=== PATIENT | male | born 1995 | race Caucasian/White ===

== ENCOUNTER 2017-03-21 23:12 | Inpatient (IN) | payer OTHER ==
[2017-03-21] MEDS: morphine 4 MG/ML VIAL IV (23:52)
[2017-03-21] MEDS: SOD CHLORIDE 0.9% 1,000 ML IV (23:52)
[2017-03-21] MEDS: ONDANSETRON 4 MG INJ IV (23:53)
[2017-03-21 23:59] LABS: ADD MAN DIFF? NO
[2017-03-22 00:01] LABS: WHITE BLOOD COUNT 12.7 10^3/ul (4.8-10.8)
[2017-03-22 00:01] LABS: BASOPHIL # 0.1 10^3/ul (0.0-0.1); BASOPHILS % 0.6 % (0.0-2.0); EOSINOPHILS # 0.2 10^3/ul (0.0-0.5); EOSINOPHILS % 1.3 % (0.0-7.0); HEMATOCRIT 44.7 % (42.0-52.0); HEMOGLOBIN 14.7 g/dl (14.0-18.0); LYMPHOCYTES # 3.5 10^3/ul (0.8-2.9); LYMPHOCYTES % 27.4 % (18.0-55.0); MEAN CORPUSCULAR HEMOGLOBIN 29.2 pg (29.0-33.0); MEAN CORPUSCULAR HGB CONC 32.9 g/dl (32.0-37.0); MEAN CORPUSCULAR VOLUME 88.9 fl (72.0-104.0); MEAN PLATELET VOLUME 10.3 fl (7.4-10.4); MONOCYTE # 0.6 10^3/ul (0.3-0.9); NEUTROPHIL # 8.3 10^3/ul (1.6-7.5); NEUTROPHILS % 65.3 % (30.0-74.0); PLATELET COUNT 598 10^3/UL (140-415); RED BLOOD COUNT 5.03 10^6/ul (4.70-6.10); RED CELL DISTRIBUTION WIDTH 12.8 % (11.5-14.5)
[2017-03-22] MEDS ORDERED: morphine 4 MG/ML VIAL IV (00:42)
[2017-03-22 00:48] LABS: ALANINE AMINOTRANSFERASE 93 IU/L (13-69); ALBUMIN 4.3 g/dl (3.3-4.9); ALBUMIN/GLOBULIN RATIO 0.81; ALKALINE PHOSPHATASE 136 IU/L (42-121); ANION GAP 20 (8-16); ASPARTATE AMINO TRANSFERASE 60 IU/L (15-46); BILIRUBIN,INDIRECT 0.5 mg/dl (0-1.1); BILIRUBIN,TOTAL 0.5 mg/dl (0.2-1.3); BLOOD UREA NITROGEN 14 mg/dl (7-20); CALCIUM 10.1 mg/dl (8.4-10.2); CARBON DIOXIDE 23 mmol/L (21-31); CHLORIDE 102 mmol/L (97-110); CREATININE 0.94 mg/dl (0.61-1.24); GLUCOSE 134 mg/dl (70-220); LIPASE 867 U/L (23-300); SODIUM 141 mmol/L (135-144); TOTAL PROTEIN 9.6 g/dl (6.1-8.1)
[2017-03-22] MEDS: HYDROmorphONE 1 MG/ML SYG IV ×4 (00:51→21:50)
[2017-03-22] MEDS: MEROPENEM 500MG/50 ML (PMX) 50 ML IVPB ×3 (02:19→21:45)
[2017-03-22] MEDS ORDERED: NACL 0.9% 3 ML SYG IV (04:00)
[2017-03-22] MEDS ORDERED: ALBUTEROL/IPRATROPIUM (NEB) 3 ML AMP HHN (04:00)
[2017-03-22] MEDS ORDERED: morphine 2 MG INJ IV (04:00)
[2017-03-22] MEDS ORDERED: ACETAMINOPHEN 650 MG SUPP PR (04:00)
[2017-03-22] MEDS: DEXTROSE 5%-0.45% NACL 1,000 ML IV ×3 (04:18→21:19)
[2017-03-22] MEDS: FAMOTIDINE 20 MG INJ IV ×2 (12:39→21:19)
[2017-03-22] MEDS ORDERED: VANCOMYCIN IV PER PHARMACY XX (15:30)
[2017-03-22] MEDS: morphine 4 MG/ML VIAL IV ×2 (16:01→18:26)
[2017-03-22 17:38] LABS: LACTIC ACID 1.5 mmol/L (0.5-2.0)
[2017-03-22] MEDS: VANCOMYCIN 1.5 GM in DEXTROSE 5% 500 ML IVPB (19:42)
[2017-03-22] MEDS: MEROPENEM 1 GM/50ML(PMX) 50 ML IVPB (21:11)
[2017-03-22] MEDS: VANCOMYCIN 1.5 GM in SOD CHLORIDE 0.9% 250 ML IVPB (22:39)
[2017-03-23] MEDS ORDERED: VANCOMYCIN 1 GM 250 ML IVPB
[2017-03-23] MEDS: morphine 4 MG/ML VIAL IV ×4 (01:32→20:27)
[2017-03-23] MEDS: DEXTROSE 5%-0.45% NACL 1,000 ML IV ×3 (03:15→18:49)
[2017-03-23] MEDS: MEROPENEM 1 GM/50ML(PMX) 50 ML IVPB ×3 (05:31→20:25)
[2017-03-23 07:41] LABS: ADD MAN DIFF? NO
[2017-03-23 08:02] LABS: BASOPHILS % 0.3 % (0.0-2.0); EOSINOPHILS # 0.1 10^3/ul (0.0-0.5); HEMATOCRIT 36.1 % (42.0-52.0); LYMPHOCYTES % 22.7 % (18.0-55.0); MEAN CORPUSCULAR HGB CONC 33.2 g/dl (32.0-37.0); MEAN CORPUSCULAR VOLUME 90.3 fl (72.0-104.0); MEAN PLATELET VOLUME 10.8 fl (7.4-10.4); MONOCYTE # 0.7 10^3/ul (0.3-0.9); MONOCYTES % 8.3 % (0.0-13.0); NEUTROPHILS % 67.5 % (30.0-74.0); PLATELET COUNT 362 10^3/UL (140-415); RED CELL DISTRIBUTION WIDTH 13.2 % (11.5-14.5)
[2017-03-23 08:02] LABS: WHITE BLOOD COUNT 8.9 10^3/ul (4.8-10.8)
[2017-03-23 08:15] LABS: ALANINE AMINOTRANSFERASE 65 IU/L (13-69); ALBUMIN 2.9 g/dl (3.3-4.9); ALBUMIN/GLOBULIN RATIO 0.72; ALKALINE PHOSPHATASE 83 IU/L (42-121); ANION GAP 14 (8-16); ASPARTATE AMINO TRANSFERASE 33 IU/L (15-46); BILIRUBIN,INDIRECT 0.7 mg/dl (0-1.1); BILIRUBIN,TOTAL 0.7 mg/dl (0.2-1.3); BLOOD UREA NITROGEN 8 mg/dl (7-20); CALCIUM 9.1 mg/dl (8.4-10.2); CARBON DIOXIDE 28 mmol/L (21-31); CHLORIDE 102 mmol/L (97-110); CREATININE 0.75 mg/dl (0.61-1.24); GLUCOSE 89 mg/dl (70-220); MAGNESIUM 1.8 mg/dl (1.7-2.5); POTASSIUM 3.4 mmol/L (3.5-5.1); SODIUM 141 mmol/L (135-144); TOTAL PROTEIN 6.9 g/dl (6.1-8.1)
[2017-03-23] MEDS: FAMOTIDINE 20 MG INJ IV ×2 (09:12→20:25)
[2017-03-23] MEDS: VANCOMYCIN 1 GM 250 ML IVPB ×3 (09:12→21:43)
[2017-03-23] MEDS: POTASSIUM CHLORIDE 30 MEQ in SOD CHLORIDE 0.9% 150 ML IVPB (11:52)
[2017-03-23 21:20] LABS: VANCOMYCIN,TROUGH 18.4 ug/ml (10.0-20.0)
[2017-03-23] MEDS: ONDANSETRON 4 MG INJ IV (21:57)
[2017-03-23] MEDS: HYDROmorphONE 1 MG/ML SYG IV (22:44)
[2017-03-24] MEDS: DEXTROSE 5%-0.45% NACL 1,000 ML IV ×3 (02:18→14:22)
[2017-03-24] MEDS: MEROPENEM 1 GM/50ML(PMX) 50 ML IVPB ×3 (04:59→21:13)
[2017-03-24] MEDS: morphine 4 MG/ML VIAL IV ×3 (04:59→18:13)
[2017-03-24] MEDS: VANCOMYCIN 1 GM 250 ML IVPB (05:57)
[2017-03-24 07:54] LABS: ADD MAN DIFF? NO
[2017-03-24 08:00] LABS: BASOPHILS % 0.3 % (0.0-2.0); EOSINOPHILS # 0.2 10^3/ul (0.0-0.5); HEMATOCRIT 35.5 % (42.0-52.0); LYMPHOCYTES # 1.7 10^3/ul (0.8-2.9); LYMPHOCYTES % 22.3 % (18.0-55.0); MEAN CORPUSCULAR HEMOGLOBIN 29.6 pg (29.0-33.0); MEAN CORPUSCULAR HGB CONC 33.8 g/dl (32.0-37.0); MEAN CORPUSCULAR VOLUME 87.4 fl (72.0-104.0); MEAN PLATELET VOLUME 11.1 fl (7.4-10.4); MONOCYTE # 0.8 10^3/ul (0.3-0.9); MONOCYTES % 10.9 % (0.0-13.0); NEUTROPHIL # 4.8 10^3/ul (1.6-7.5); NEUTROPHILS % 63.2 % (30.0-74.0); PLATELET COUNT 343 10^3/UL (140-415); RED BLOOD COUNT 4.06 10^6/ul (4.70-6.10); RED CELL DISTRIBUTION WIDTH 12.7 % (11.5-14.5)
[2017-03-24 08:00] LABS: WHITE BLOOD COUNT 7.6 10^3/ul (4.8-10.8)
[2017-03-24 08:30] LABS: LIPASE 658 U/L (23-300)
[2017-03-24 08:32] LABS: ALANINE AMINOTRANSFERASE 54 IU/L (13-69); ALBUMIN/GLOBULIN RATIO 0.76; ALKALINE PHOSPHATASE 84 IU/L (42-121); ANION GAP 14 (8-16); ASPARTATE AMINO TRANSFERASE 30 IU/L (15-46); BILIRUBIN,INDIRECT 0.6 mg/dl (0-1.1); BILIRUBIN,TOTAL 0.6 mg/dl (0.2-1.3); BLOOD UREA NITROGEN 5 mg/dl (7-20); CARBON DIOXIDE 28 mmol/L (21-31); CHLORIDE 101 mmol/L (97-110); CREATININE 0.69 mg/dl (0.61-1.24); GLUCOSE 114 mg/dl (70-220); POTASSIUM 3.5 mmol/L (3.5-5.1); SODIUM 139 mmol/L (135-144); TOTAL PROTEIN 6.9 g/dl (6.1-8.1)
[2017-03-24 08:40] LABS: LACTIC ACID 0.9 mmol/L (0.5-2.0)
[2017-03-24] MEDS: FAMOTIDINE 20 MG INJ IV ×2 (08:56→20:37)
[2017-03-24 09:47] LABS: MAGNESIUM 1.9 mg/dl (1.7-2.5)
[2017-03-24] MEDS: VANCOMYCIN 750 MG in DEXTROSE 5% 150 ML IVPB ×2 (14:19→22:02)
[2017-03-24] MEDS: ONDANSETRON 4 MG INJ IV (21:15)
[2017-03-24] MEDS: HYDROmorphONE 1 MG/ML SYG IV (22:02)
[2017-03-25] MEDS: METOCLOPRAMIDE 10 MG INJ IV (00:12)
[2017-03-25] MEDS ORDERED: METOCLOPRAMIDE 10 MG INJ (00:14)
[2017-03-25] MEDS: DEXTROSE 5%-0.45% NACL 1,000 ML IV ×4 (03:34→21:02)
[2017-03-25] MEDS: morphine 4 MG/ML VIAL IV ×4 (04:51→22:04)
[2017-03-25] MEDS: MEROPENEM 1 GM/50ML(PMX) 50 ML IVPB ×3 (05:05→21:03)
[2017-03-25] MEDS: VANCOMYCIN 750 MG in DEXTROSE 5% 150 ML IVPB ×3 (05:25→21:30)
[2017-03-25 06:10] LABS: ADD MAN DIFF? NO
[2017-03-25 06:15] LABS: BASOPHILS % 0.4 % (0.0-2.0); EOSINOPHILS # 0.3 10^3/ul (0.0-0.5); EOSINOPHILS % 3.1 % (0.0-7.0); HEMATOCRIT 35.4 % (42.0-52.0); LYMPHOCYTES # 1.8 10^3/ul (0.8-2.9); LYMPHOCYTES % 21.2 % (18.0-55.0); MEAN CORPUSCULAR HEMOGLOBIN 29.9 pg (29.0-33.0); MEAN CORPUSCULAR HGB CONC 33.9 g/dl (32.0-37.0); MEAN CORPUSCULAR VOLUME 88.1 fl (72.0-104.0); MEAN PLATELET VOLUME 10.9 fl (7.4-10.4); MONOCYTE # 0.9 10^3/ul (0.3-0.9); MONOCYTES % 10.7 % (0.0-13.0); NEUTROPHIL # 5.4 10^3/ul (1.6-7.5); NEUTROPHILS % 64.2 % (30.0-74.0); PLATELET COUNT 313 10^3/UL (140-415); RED BLOOD COUNT 4.02 10^6/ul (4.70-6.10); RED CELL DISTRIBUTION WIDTH 12.5 % (11.5-14.5)
[2017-03-25 06:15] LABS: WHITE BLOOD COUNT 8.4 10^3/ul (4.8-10.8)
[2017-03-25 07:08] LABS: ANION GAP 14 (8-16); BLOOD UREA NITROGEN 4 mg/dl (7-20); CALCIUM 9.6 mg/dl (8.4-10.2); CARBON DIOXIDE 30 mmol/L (21-31); CHLORIDE 99 mmol/L (97-110); CREATININE 0.73 mg/dl (0.61-1.24); GLUCOSE 97 mg/dl (70-220); MAGNESIUM 1.9 mg/dl (1.7-2.5); PHOSPHORUS 4.6 mg/dl (2.5-4.9); POTASSIUM 3.9 mmol/L (3.5-5.1); SODIUM 139 mmol/L (135-144)
[2017-03-25] MEDS: FAMOTIDINE 20 MG INJ IV ×2 (08:31→21:02)
[2017-03-25] MEDS: SOD CHLORIDE 0.9% 500 ML IV (17:21)
[2017-03-25] MEDS: HYDROmorphONE 1 MG/ML SYG IV ×2 (17:48→22:44)
[2017-03-25 21:44] LABS: VANCOMYCIN,TROUGH 11.9 ug/ml (10.0-20.0)
[2017-03-25] MEDS: ONDANSETRON 4 MG INJ IV (22:50)
[2017-03-26] MEDS: morphine 4 MG/ML VIAL IV (03:32)
[2017-03-26] MEDS: DEXTROSE 5%-0.45% NACL 1,000 ML IV ×3 (03:34→19:34)
[2017-03-26] MEDS: MEROPENEM 1 GM/50ML(PMX) 50 ML IVPB ×3 (05:25→21:10)
[2017-03-26] MEDS: HYDROmorphONE 1 MG/ML SYG IV ×5 (05:32→21:11)
[2017-03-26] MEDS: VANCOMYCIN 750 MG in DEXTROSE 5% 150 ML IVPB ×3 (06:04→21:55)
[2017-03-26 08:29] LABS: ADD MAN DIFF? NO
[2017-03-26 08:52] LABS: BASOPHILS % 0.5 % (0.0-2.0); EOSINOPHILS # 0.3 10^3/ul (0.0-0.5); EOSINOPHILS % 3.5 % (0.0-7.0); HEMATOCRIT 36.7 % (42.0-52.0); HEMOGLOBIN 12.2 g/dl (14.0-18.0); LYMPHOCYTES # 1.9 10^3/ul (0.8-2.9); LYMPHOCYTES % 23.4 % (18.0-55.0); MEAN CORPUSCULAR HEMOGLOBIN 29.4 pg (29.0-33.0); MEAN CORPUSCULAR HGB CONC 33.2 g/dl (32.0-37.0); MEAN CORPUSCULAR VOLUME 88.4 fl (72.0-104.0); MEAN PLATELET VOLUME 11.1 fl (7.4-10.4); MONOCYTE # 1.1 10^3/ul (0.3-0.9); MONOCYTES % 13.8 % (0.0-13.0); NEUTROPHIL # 4.7 10^3/ul (1.6-7.5); NEUTROPHILS % 58.5 % (30.0-74.0); PLATELET COUNT 326 10^3/UL (140-415); RED BLOOD COUNT 4.15 10^6/ul (4.70-6.10); RED CELL DISTRIBUTION WIDTH 12.4 % (11.5-14.5)
[2017-03-26 08:57] LABS: INR 1.14; PROTIME 14.8 Sec (11.9-14.9); PT RATIO 1.2
[2017-03-26] MEDS: FAMOTIDINE 20 MG INJ IV ×2 (09:01→21:11)
[2017-03-26] MEDS: ENOXAPARIN 40 MG/0.4 ML SYG SC (09:22)
[2017-03-26 09:52] LABS: ALANINE AMINOTRANSFERASE 52 IU/L (13-69); ALBUMIN 3.5 g/dl (3.3-4.9); ALBUMIN/GLOBULIN RATIO 0.85; ALKALINE PHOSPHATASE 103 IU/L (42-121); ANION GAP 15 (8-16); ASPARTATE AMINO TRANSFERASE 48 IU/L (15-46); BILIRUBIN,INDIRECT 0.8 mg/dl (0-1.1); BILIRUBIN,TOTAL 0.8 mg/dl (0.2-1.3); BLOOD UREA NITROGEN 3 mg/dl (7-20); CALCIUM 9.6 mg/dl (8.4-10.2); CARBON DIOXIDE 29 mmol/L (21-31); CHLORIDE 100 mmol/L (97-110); CREATININE 0.64 mg/dl (0.61-1.24); GLUCOSE 96 mg/dl (70-220); MAGNESIUM 1.9 mg/dl (1.7-2.5); PHOSPHORUS 4.3 mg/dl (2.5-4.9); POTASSIUM 3.8 mmol/L (3.5-5.1); SODIUM 140 mmol/L (135-144); TOTAL PROTEIN 7.6 g/dl (6.1-8.1)
[2017-03-26 11:44] LABS: LACTATE DEHYDROGENASE 449 IU/L (313-618)
[2017-03-26 11:52] LABS: CHOL/HDL RATIO 6.5 RATIO; HDL CHOLESTEROL 17 mg/dl (30-63); LDL CHOLESTEROL,CALCULATED 73 mg/dl; TRIGLYCERIDES 105 mg/dl (0-149)
[2017-03-26 11:52] LABS: CHOLESTEROL 111 mg/dl (85-190)
[2017-03-26] MEDS: ONDANSETRON 4 MG INJ IV ×2 (14:44→22:27)
[2017-03-26] MEDS ORDERED: LIDOCAINE 1% (MPF) 5 ML VIAL SC (15:30)
[2017-03-26 20:07] LABS: HEMOGLOBIN A1C 5.5 % (0-5.9)
[2017-03-27] MEDS: HYDROmorphONE 1 MG/ML SYG IV ×7 (00:19→22:52)
[2017-03-27] MEDS: DEXTROSE 5%-0.45% NACL 1,000 ML IV ×3 (00:19→19:34)
[2017-03-27] MEDS: MEROPENEM 1 GM/50ML(PMX) 50 ML IVPB ×3 (05:08→21:10)
[2017-03-27] MEDS: VANCOMYCIN 750 MG in DEXTROSE 5% 150 ML IVPB ×3 (05:43→22:52)
[2017-03-27 06:40] LABS: ADD MAN DIFF? NO
[2017-03-27 06:42] LABS: WHITE BLOOD COUNT 7.4 10^3/ul (4.8-10.8)
[2017-03-27 06:42] LABS: BASOPHILS % 0.4 % (0.0-2.0); EOSINOPHILS # 0.2 10^3/ul (0.0-0.5); EOSINOPHILS % 3.2 % (0.0-7.0); HEMATOCRIT 35.2 % (42.0-52.0); HEMOGLOBIN 12.1 g/dl (14.0-18.0); LYMPHOCYTES # 1.5 10^3/ul (0.8-2.9); LYMPHOCYTES % 19.8 % (18.0-55.0); MEAN CORPUSCULAR HGB CONC 34.4 g/dl (32.0-37.0); MEAN CORPUSCULAR VOLUME 87.1 fl (72.0-104.0); MEAN PLATELET VOLUME 10.9 fl (7.4-10.4); MONOCYTE # 1.1 10^3/ul (0.3-0.9); MONOCYTES % 14.6 % (0.0-13.0); NEUTROPHIL # 4.6 10^3/ul (1.6-7.5); NEUTROPHILS % 61.7 % (30.0-74.0); PLATELET COUNT 288 10^3/UL (140-415); RED BLOOD COUNT 4.04 10^6/ul (4.70-6.10); RED CELL DISTRIBUTION WIDTH 12.6 % (11.5-14.5)
[2017-03-27 07:05] LABS: LIPASE 467 U/L (23-300)
[2017-03-27 07:11] LABS: ALANINE AMINOTRANSFERASE 63 IU/L (13-69); ALBUMIN 3.5 g/dl (3.3-4.9); ALBUMIN/GLOBULIN RATIO 0.85; ALKALINE PHOSPHATASE 105 IU/L (42-121); ANION GAP 15 (8-16); ASPARTATE AMINO TRANSFERASE 39 IU/L (15-46); BILIRUBIN,INDIRECT 0.8 mg/dl (0-1.1); BILIRUBIN,TOTAL 0.8 mg/dl (0.2-1.3); BLOOD UREA NITROGEN 4 mg/dl (7-20); CALCIUM 9.7 mg/dl (8.4-10.2); CARBON DIOXIDE 29 mmol/L (21-31); CHLORIDE 99 mmol/L (97-110); CREATININE 0.62 mg/dl (0.61-1.24); GLUCOSE 101 mg/dl (70-220); MAGNESIUM 1.8 mg/dl (1.7-2.5); PHOSPHORUS 4.2 mg/dl (2.5-4.9); POTASSIUM 3.8 mmol/L (3.5-5.1); SODIUM 139 mmol/L (135-144); TOTAL PROTEIN 7.6 g/dl (6.1-8.1)
[2017-03-27 08:10] LABS: INR 1.21; PROTIME 15.5 Sec (11.9-14.9); PT RATIO 1.2
[2017-03-27] MEDS ORDERED: morphine LIQ (20 MG/ML PO SYG) SL (09:00)
[2017-03-27] MEDS: BARIUM SULF 2% 450 ML BTL (BERRY SMOOTHIE) PO (09:07)
[2017-03-27] MEDS: FAMOTIDINE 20 MG INJ IV ×2 (09:07→20:46)
[2017-03-27] MEDS: ENOXAPARIN 40 MG/0.4 ML SYG SC (09:08)
[2017-03-27] MEDS: IOHEXOL 300MG/ML 150 ML BTL (11:08)
[2017-03-27] MEDS: SOD CHLORIDE 0.9% 100 ML (11:08)
[2017-03-27] MEDS: ONDANSETRON 4 MG INJ IV (20:43)
[2017-03-28] MEDS: HYDROmorphONE 1 MG/ML SYG IV ×7 (01:48→22:41)
[2017-03-28] MEDS: DEXTROSE 5%-0.45% NACL 1,000 ML IV ×3 (01:48→12:41)
[2017-03-28] MEDS: MEROPENEM 1 GM/50ML(PMX) 50 ML IVPB ×2 (05:00→13:53)
[2017-03-28 05:51] LABS: ADD MAN DIFF? NO
[2017-03-28 05:53] LABS: BASOPHILS % 0.6 % (0.0-2.0); EOSINOPHILS # 0.2 10^3/ul (0.0-0.5); EOSINOPHILS % 2.7 % (0.0-7.0); HEMATOCRIT 38.2 % (42.0-52.0); HEMOGLOBIN 12.7 g/dl (14.0-18.0); LYMPHOCYTES # 1.6 10^3/ul (0.8-2.9); LYMPHOCYTES % 23.5 % (18.0-55.0); MEAN CORPUSCULAR HEMOGLOBIN 29.1 pg (29.0-33.0); MEAN CORPUSCULAR HGB CONC 33.2 g/dl (32.0-37.0); MEAN CORPUSCULAR VOLUME 87.4 fl (72.0-104.0); MEAN PLATELET VOLUME 11.2 fl (7.4-10.4); MONOCYTE # 1.1 10^3/ul (0.3-0.9); MONOCYTES % 15.6 % (0.0-13.0); NEUTROPHIL # 3.8 10^3/ul (1.6-7.5); NEUTROPHILS % 57.2 % (30.0-74.0); PLATELET COUNT 246 10^3/UL (140-415); RED BLOOD COUNT 4.37 10^6/ul (4.70-6.10); RED CELL DISTRIBUTION WIDTH 12.3 % (11.5-14.5)
[2017-03-28 05:53] LABS: WHITE BLOOD COUNT 6.7 10^3/ul (4.8-10.8)
[2017-03-28] MEDS: VANCOMYCIN 750 MG in DEXTROSE 5% 150 ML IVPB ×2 (06:07→15:38)
[2017-03-28 06:16] LABS: LIPASE 406 U/L (23-300)
[2017-03-28 06:28] LABS: ANION GAP 14 (8-16); BLOOD UREA NITROGEN 3 mg/dl (7-20); CALCIUM 9.3 mg/dl (8.4-10.2); CARBON DIOXIDE 28 mmol/L (21-31); CHLORIDE 99 mmol/L (97-110); GLUCOSE 108 mg/dl (70-220); POTASSIUM 3.6 mmol/L (3.5-5.1); SODIUM 137 mmol/L (135-144)
[2017-03-28] MEDS: FAMOTIDINE 20 MG INJ IV ×2 (08:23→20:58)
[2017-03-28] MEDS: ENOXAPARIN 40 MG/0.4 ML SYG SC (08:24)
[2017-03-28] MEDS: ONDANSETRON 4 MG INJ IV ×2 (13:54→19:57)
[2017-03-28] MEDS ORDERED: morphine LIQ (10 MG/5 ML) CUP PO (19:00)
[2017-03-28] MEDS: HYDROmorphONE 0.5 MG/0.5 ML SYG IV (20:37)
[2017-03-28 22:16] LABS: VANCOMYCIN,TROUGH 11.7 ug/ml (10.0-20.0)
[2017-03-29] MEDS: DEXTROSE 5%-0.45% NACL 1,000 ML IV ×5 (00:16→21:12)
[2017-03-29] MEDS: HYDROmorphONE 0.5 MG/0.5 ML SYG IV ×3 (01:18→23:38)
[2017-03-29] MEDS: HYDROmorphONE 1 MG/ML SYG IV ×4 (04:57→20:04)
[2017-03-29 06:21] LABS: ADD MAN DIFF? NO
[2017-03-29 06:37] LABS: BASOPHILS % 0.3 % (0.0-2.0); EOSINOPHILS # 0.1 10^3/ul (0.0-0.5); EOSINOPHILS % 1.1 % (0.0-7.0); HEMATOCRIT 37.1 % (42.0-52.0); HEMOGLOBIN 12.7 g/dl (14.0-18.0); LYMPHOCYTES # 1.5 10^3/ul (0.8-2.9); LYMPHOCYTES % 18.8 % (18.0-55.0); MEAN CORPUSCULAR HGB CONC 34.2 g/dl (32.0-37.0); MEAN CORPUSCULAR VOLUME 87.5 fl (72.0-104.0); MEAN PLATELET VOLUME 11.7 fl (7.4-10.4); MONOCYTE # 1.1 10^3/ul (0.3-0.9); MONOCYTES % 13.1 % (0.0-13.0); NEUTROPHIL # 5.3 10^3/ul (1.6-7.5); NEUTROPHILS % 66.6 % (30.0-74.0); PLATELET COUNT 268 10^3/UL (140-415); RED BLOOD COUNT 4.24 10^6/ul (4.70-6.10); RED CELL DISTRIBUTION WIDTH 12.5 % (11.5-14.5)
[2017-03-29 07:01] LABS: ANION GAP 15 (8-16); BLOOD UREA NITROGEN 4 mg/dl (7-20); CALCIUM 9.1 mg/dl (8.4-10.2); CARBON DIOXIDE 29 mmol/L (21-31); CHLORIDE 98 mmol/L (97-110); CREATININE 0.62 mg/dl (0.61-1.24); GLUCOSE 126 mg/dl (70-220); POTASSIUM 3.8 mmol/L (3.5-5.1); SODIUM 138 mmol/L (135-144)
[2017-03-29 07:15] LABS: LIPASE 750 U/L (23-300)
[2017-03-29 08:28] LABS: AMYLASE 695 U/L (11-123)
[2017-03-29] MEDS: FAMOTIDINE 20 MG INJ IV ×2 (09:30→20:04)
[2017-03-29] MEDS: ENOXAPARIN 40 MG/0.4 ML SYG SC (09:34)
[2017-03-29] MEDS ORDERED: ONDANSETRON 4 MG INJ IV (10:30)
[2017-03-29] MEDS ORDERED: TRIMETHOBENZAMIDE 100 MG/ML VIAL IM (11:00)
[2017-03-29] MEDS: ONDANSETRON INJ 8 MG in SOD CHLORIDE 0.9% 50 ML IV (11:35)
[2017-03-29] MEDS: HYDROCODONE/APAP (5/325) TAB PO ×3 (12:28→21:09)
[2017-03-29] MEDS ORDERED: HYDROmorphONE 1 MG/ML SYG IV (15:30)
[2017-03-29] MEDS: METOCLOPRAMIDE 10 MG INJ IV (23:37)
[2017-03-30] MEDS: DEXTROSE 5%-0.45% NACL 1,000 ML IV ×3 (03:10→20:10)
[2017-03-30] MEDS: HYDROmorphONE 1 MG/ML SYG IV ×4 (03:10→22:23)
[2017-03-30 06:19] LABS: ADD MAN DIFF? NO
[2017-03-30] MEDS: HYDROmorphONE 0.5 MG/0.5 ML SYG IV ×3 (06:26→21:13)
[2017-03-30 06:42] LABS: WHITE BLOOD COUNT 9.8 10^3/ul (4.8-10.8)
[2017-03-30 06:42] LABS: BASOPHILS % 0.4 % (0.0-2.0); EOSINOPHILS # 0.1 10^3/ul (0.0-0.5); EOSINOPHILS % 0.7 % (0.0-7.0); HEMATOCRIT 34.3 % (42.0-52.0); HEMOGLOBIN 11.6 g/dl (14.0-18.0); LYMPHOCYTES % 20.9 % (18.0-55.0); MEAN CORPUSCULAR HEMOGLOBIN 29.7 pg (29.0-33.0); MEAN CORPUSCULAR HGB CONC 33.8 g/dl (32.0-37.0); MEAN CORPUSCULAR VOLUME 87.9 fl (72.0-104.0); MEAN PLATELET VOLUME 12.3 fl (7.4-10.4); MONOCYTE # 1.2 10^3/ul (0.3-0.9); NEUTROPHIL # 6.4 10^3/ul (1.6-7.5); NEUTROPHILS % 65.7 % (30.0-74.0); PLATELET COUNT 181 10^3/UL (140-415); RED CELL DISTRIBUTION WIDTH 12.6 % (11.5-14.5)
[2017-03-30 07:07] LABS: ANION GAP 13 (8-16); BLOOD UREA NITROGEN 3 mg/dl (7-20); CALCIUM 8.9 mg/dl (8.4-10.2); CARBON DIOXIDE 27 mmol/L (21-31); CHLORIDE 100 mmol/L (97-110); CREATININE 0.55 mg/dl (0.61-1.24); GLUCOSE 125 mg/dl (70-220); POTASSIUM 3.8 mmol/L (3.5-5.1); SODIUM 136 mmol/L (135-144)
[2017-03-30 07:37] LABS: LIPASE 444 U/L (23-300)
[2017-03-30] MEDS: FAMOTIDINE 20 MG INJ IV ×2 (09:21→20:08)
[2017-03-30] MEDS: METOCLOPRAMIDE 10 MG INJ IV ×2 (09:22→16:06)
[2017-03-30] MEDS: ENOXAPARIN 40 MG/0.4 ML SYG SC (09:37)
[2017-03-30] MEDS: ONDANSETRON INJ 8 MG in SOD CHLORIDE 0.9% 50 ML IV (12:58)
[2017-03-30] MEDS: HYDROmorphONE 2 MG/ML SYG IV (17:39)
[2017-03-31] MEDS: HYDROmorphONE 2 MG/ML SYG IV ×6 (01:58→22:33)
[2017-03-31] MEDS: DEXTROSE 5%-0.45% NACL 1,000 ML IV ×3 (04:16→22:33)
[2017-03-31] MEDS: METOCLOPRAMIDE 10 MG INJ IV (05:27)
[2017-03-31 06:19] LABS: ADD MAN DIFF? NO
[2017-03-31 06:32] LABS: WHITE BLOOD COUNT 11.8 10^3/ul (4.8-10.8)
[2017-03-31 06:32] LABS: ABNORMAL IP MESSAGE 1; BASOPHILS % 0.3 % (0.0-2.0); EOSINOPHILS # 0.1 10^3/ul (0.0-0.5); EOSINOPHILS % 0.5 % (0.0-7.0); HEMATOCRIT 35.1 % (42.0-52.0); HEMOGLOBIN 11.6 g/dl (14.0-18.0); LYMPHOCYTES # 2.5 10^3/ul (0.8-2.9); LYMPHOCYTES % 21.2 % (18.0-55.0); MEAN CORPUSCULAR HEMOGLOBIN 29.3 pg (29.0-33.0); MEAN CORPUSCULAR VOLUME 88.6 fl (72.0-104.0); MONOCYTE # 1.5 10^3/ul (0.3-0.9); MONOCYTES % 12.8 % (0.0-13.0); NEUTROPHIL # 7.6 10^3/ul (1.6-7.5); NEUTROPHILS % 64.9 % (30.0-74.0); PLATELET COUNT 270 10^3/UL (140-415); POSITIVE DIFF @See below; RED BLOOD COUNT 3.96 10^6/ul (4.70-6.10); RED CELL DISTRIBUTION WIDTH 12.7 % (11.5-14.5)
[2017-03-31 07:53] LABS: ALANINE AMINOTRANSFERASE 49 IU/L (13-69); ALBUMIN 3.9 g/dl (3.3-4.9); ALKALINE PHOSPHATASE 110 IU/L (42-121); AMYLASE 329 U/L (11-123); ANION GAP 17 (8-16); ASPARTATE AMINO TRANSFERASE 47 IU/L (15-46); BILIRUBIN,INDIRECT 1.1 mg/dl (0-1.1); BILIRUBIN,TOTAL 1.1 mg/dl (0.2-1.3); BLOOD UREA NITROGEN 2 mg/dl (7-20); CALCIUM 9.3 mg/dl (8.4-10.2); CARBON DIOXIDE 26 mmol/L (21-31); CHLORIDE 99 mmol/L (97-110); CREATININE 0.54 mg/dl (0.61-1.24); GLUCOSE 122 mg/dl (70-220); LIPASE 530 U/L (23-300); POTASSIUM 3.5 mmol/L (3.5-5.1); SODIUM 138 mmol/L (135-144); TOTAL PROTEIN 7.8 g/dl (6.1-8.1)
[2017-03-31] MEDS: FAMOTIDINE 20 MG INJ IV ×2 (09:57→22:33)
[2017-03-31] MEDS: ENOXAPARIN 40 MG/0.4 ML SYG SC (10:03)
[2017-03-31] MEDS: DIPHENHYDRAMINE 50 MG INJ IV ×3 (10:54→22:33)
[2017-03-31] MEDS: ACETAMINOPHEN 1000MG/100ML IV 100 ML IVPB ×3 (12:14→23:56)
[2017-03-31] MEDS: ONDANSETRON INJ 8 MG in SOD CHLORIDE 0.9% 50 ML IV ×2 (12:39→18:57)
[2017-04-01] MEDS: ONDANSETRON INJ 8 MG in SOD CHLORIDE 0.9% 50 ML IV ×4 (00:19→17:43)
[2017-04-01] MEDS: HYDROmorphONE 2 MG/ML SYG IV ×7 (01:46→21:33)
[2017-04-01] MEDS: DEXTROSE 5%-0.45% NACL 1,000 ML IV ×5 (04:34→21:33)
[2017-04-01] MEDS: DIPHENHYDRAMINE 50 MG INJ IV ×4 (04:34→21:33)
[2017-04-01 06:03] LABS: ADD MAN DIFF? NO
[2017-04-01 06:20] LABS: ABNORMAL IP MESSAGE 1; BASOPHILS % 0.2 % (0.0-2.0); EOSINOPHILS # 0.1 10^3/ul (0.0-0.5); EOSINOPHILS % 0.5 % (0.0-7.0); HEMATOCRIT 34.5 % (42.0-52.0); HEMOGLOBIN 11.4 g/dl (14.0-18.0); LYMPHOCYTES # 1.3 10^3/ul (0.8-2.9); LYMPHOCYTES % 11.2 % (18.0-55.0); MEAN CORPUSCULAR HEMOGLOBIN 29.2 pg (29.0-33.0); MEAN CORPUSCULAR VOLUME 88.2 fl (72.0-104.0); MEAN PLATELET VOLUME 12.9 fl (7.4-10.4); MONOCYTE # 1.5 10^3/ul (0.3-0.9); NEUTROPHIL # 8.7 10^3/ul (1.6-7.5); NEUTROPHILS % 74.7 % (30.0-74.0); POSITIVE DIFF @See below; RED BLOOD COUNT 3.91 10^6/ul (4.70-6.10); RED CELL DISTRIBUTION WIDTH 12.7 % (11.5-14.5)
[2017-04-01 06:20] LABS: WHITE BLOOD COUNT 11.7 10^3/ul (4.8-10.8)
[2017-04-01 06:21] LABS: PLATELET COUNT 184 10^3/UL (140-415)
[2017-04-01 06:39] LABS: ANION GAP 14 (8-16); BLOOD UREA NITROGEN 2 mg/dl (7-20); CALCIUM 8.6 mg/dl (8.4-10.2); CARBON DIOXIDE 26 mmol/L (21-31); CHLORIDE 100 mmol/L (97-110); CREATININE 0.49 mg/dl (0.61-1.24); GLUCOSE 118 mg/dl (70-220); SODIUM 136 mmol/L (135-144)
[2017-04-01] MEDS: ACETAMINOPHEN 1000MG/100ML IV 100 ML IVPB ×3 (06:42→18:30)
[2017-04-01] MEDS: FAMOTIDINE 20 MG INJ IV ×2 (08:29→21:33)
[2017-04-01] MEDS: ENOXAPARIN 40 MG/0.4 ML SYG SC (08:38)
[2017-04-02] MEDS: ACETAMINOPHEN 1000MG/100ML IV 100 ML IVPB ×5 (00:45→23:48)
[2017-04-02] MEDS: DEXTROSE 5%-0.45% NACL 1,000 ML IV ×3 (00:45→20:31)
[2017-04-02] MEDS: HYDROmorphONE 2 MG/ML SYG IV ×4 (00:45→10:14)
[2017-04-02] MEDS: ONDANSETRON INJ 8 MG in SOD CHLORIDE 0.9% 50 ML IV ×5 (01:04→23:48)
[2017-04-02] MEDS: DIPHENHYDRAMINE 50 MG INJ IV ×4 (03:56→20:32)
[2017-04-02 06:32] LABS: ADD MAN DIFF? NO
[2017-04-02 06:42] LABS: BASOPHILS % 0.3 % (0.0-2.0); EOSINOPHILS % 0.4 % (0.0-7.0); HEMATOCRIT 32.8 % (42.0-52.0); LYMPHOCYTES # 1.2 10^3/ul (0.8-2.9); LYMPHOCYTES % 10.9 % (18.0-55.0); MEAN CORPUSCULAR HEMOGLOBIN 29.1 pg (29.0-33.0); MEAN CORPUSCULAR HGB CONC 33.5 g/dl (32.0-37.0); MEAN CORPUSCULAR VOLUME 86.8 fl (72.0-104.0); MEAN PLATELET VOLUME 11.6 fl (7.4-10.4); MONOCYTE # 1.4 10^3/ul (0.3-0.9); NEUTROPHIL # 8.6 10^3/ul (1.6-7.5); PLATELET COUNT 236 10^3/UL (140-415); RED BLOOD COUNT 3.78 10^6/ul (4.70-6.10); RED CELL DISTRIBUTION WIDTH 12.6 % (11.5-14.5)
[2017-04-02 06:42] LABS: WHITE BLOOD COUNT 11.3 10^3/ul (4.8-10.8)
[2017-04-02 07:28] LABS: ANION GAP 17 (8-16); BLOOD UREA NITROGEN 3 mg/dl (7-20); CALCIUM 8.7 mg/dl (8.4-10.2); CARBON DIOXIDE 27 mmol/L (21-31); CHLORIDE 98 mmol/L (97-110); CREATININE 0.51 mg/dl (0.61-1.24); GLUCOSE 122 mg/dl (70-220); LIPASE 367 U/L (23-300); POTASSIUM 3.9 mmol/L (3.5-5.1); SODIUM 138 mmol/L (135-144)
[2017-04-02 07:32] LABS: MAGNESIUM 1.7 mg/dl (1.7-2.5)
[2017-04-02] MEDS: FAMOTIDINE 20 MG INJ IV ×2 (09:05→20:31)
[2017-04-02] MEDS: ENOXAPARIN 40 MG/0.4 ML SYG SC (09:14)
[2017-04-02] MEDS: morphine 2 MG INJ IV ×3 (14:08→22:14)
[2017-04-02] MEDS: SENNA TAB PO (20:32)
[2017-04-02] MEDS ORDERED: SENNA TAB PO (21:00)
[2017-04-02] MEDS: LORAZEPAM 2 MG INJ IV (23:48)
[2017-04-03] MEDS: morphine 2 MG INJ IV ×3 (03:39→10:37)
[2017-04-03] MEDS: DEXTROSE 5%-0.45% NACL 1,000 ML IV ×4 (04:00→20:00)
[2017-04-03] MEDS: DIPHENHYDRAMINE 50 MG INJ IV ×2 (05:29→10:37)
[2017-04-03] MEDS: ACETAMINOPHEN 1000MG/100ML IV 100 ML IVPB ×2 (05:30→12:34)
[2017-04-03] MEDS: ONDANSETRON INJ 8 MG in SOD CHLORIDE 0.9% 50 ML IV ×2 (05:31→12:34)
[2017-04-03 07:18] LABS: AMYLASE 216 U/L (11-123)
[2017-04-03 07:18] LABS: LIPASE 342 U/L (23-300)
[2017-04-03] MEDS: FAMOTIDINE 20 MG INJ IV ×2 (08:52→08:53)
[2017-04-03] MEDS: SENNA TAB PO ×2 (08:52→20:56)
[2017-04-03] MEDS: ENOXAPARIN 40 MG/0.4 ML SYG SC (09:03)
[2017-04-03] MEDS: BARIUM SULF 2% 450 ML BTL (BERRY SMOOTHIE) PO (15:30)
[2017-04-03] MEDS: ONDANSETRON 4 MG INJ IV (18:29)
[2017-04-03] MEDS: HYDROCODONE/APAP (5/325) TAB PO (20:22)
[2017-04-03] MEDS: LORAZEPAM 2 MG INJ IV (23:22)
[2017-04-04] MEDS: HYDROCODONE/APAP (5/325) TAB PO ×2 (00:40→04:42)
[2017-04-04] MEDS: DEXTROSE 5%-0.45% NACL 1,000 ML IV ×3 (00:40→17:13)
[2017-04-04] MEDS: ONDANSETRON 4 MG INJ IV ×3 (00:43→20:41)
[2017-04-04] MEDS: LORAZEPAM 2 MG INJ IV ×2 (06:14→22:20)
[2017-04-04 06:21] LABS: LIPASE 377 U/L (23-300)
[2017-04-04 06:21] LABS: AMYLASE 217 U/L (11-123)
[2017-04-04] MEDS: SENNA TAB PO ×2 (08:55→20:41)
[2017-04-04] MEDS: ENOXAPARIN 40 MG/0.4 ML SYG SC (09:03)
[2017-04-04] MEDS: morphine 2 MG INJ IV ×2 (11:58→14:06)
[2017-04-04] MEDS ORDERED: morphine 2 MG INJ IV (12:00)
[2017-04-04] MEDS: morphine 4 MG/ML VIAL IV ×2 (16:46→20:41)
[2017-04-05] MEDS: morphine 4 MG/ML VIAL IV ×7 (00:46→22:58)
[2017-04-05] MEDS: DEXTROSE 5%-0.45% NACL 1,000 ML IV ×3 (01:49→20:00)
[2017-04-05] MEDS: ONDANSETRON 4 MG INJ IV ×3 (04:38→22:55)
[2017-04-05 06:07] LABS: ADD MAN DIFF? NO
[2017-04-05 06:12] LABS: WHITE BLOOD COUNT 7.8 10^3/ul (4.8-10.8)
[2017-04-05 06:12] LABS: BASOPHILS % 0.4 % (0.0-2.0); EOSINOPHILS # 0.1 10^3/ul (0.0-0.5); EOSINOPHILS % 1.4 % (0.0-7.0); HEMATOCRIT 32.2 % (42.0-52.0); HEMOGLOBIN 10.8 g/dl (14.0-18.0); LYMPHOCYTES # 1.7 10^3/ul (0.8-2.9); LYMPHOCYTES % 22.3 % (18.0-55.0); MEAN CORPUSCULAR HEMOGLOBIN 28.9 pg (29.0-33.0); MEAN CORPUSCULAR HGB CONC 33.5 g/dl (32.0-37.0); MEAN CORPUSCULAR VOLUME 86.1 fl (72.0-104.0); MEAN PLATELET VOLUME 10.9 fl (7.4-10.4); MONOCYTES % 12.8 % (0.0-13.0); NEUTROPHIL # 4.9 10^3/ul (1.6-7.5); NEUTROPHILS % 62.7 % (30.0-74.0); PLATELET COUNT 272 10^3/UL (140-415); RED BLOOD COUNT 3.74 10^6/ul (4.70-6.10); RED CELL DISTRIBUTION WIDTH 13.2 % (11.5-14.5)
[2017-04-05 06:37] LABS: MAGNESIUM 1.7 mg/dl (1.7-2.5)
[2017-04-05 06:38] LABS: ANION GAP 16 (8-16); BLOOD UREA NITROGEN 3 mg/dl (7-20); CALCIUM 8.6 mg/dl (8.4-10.2); CARBON DIOXIDE 27 mmol/L (21-31); CHLORIDE 98 mmol/L (97-110); CREATININE 0.52 mg/dl (0.61-1.24); GLUCOSE 117 mg/dl (70-220); LIPASE 340 U/L (23-300); POTASSIUM 3.1 mmol/L (3.5-5.1); SODIUM 138 mmol/L (135-144)
[2017-04-05] MEDS: SENNA TAB PO ×2 (08:32→21:00)
[2017-04-05] MEDS: ENOXAPARIN 40 MG/0.4 ML SYG SC (08:41)
[2017-04-05] MEDS: LORAZEPAM 2 MG INJ IV ×2 (10:28→18:45)
[2017-04-05] MEDS: POTASSIUM CHLORIDE 50 ML IVPB ×5 (11:13→19:09)
[2017-04-06] MEDS: morphine 4 MG/ML VIAL IV ×7 (02:10→22:57)
[2017-04-06] MEDS: DEXTROSE 5%-0.45% NACL 1,000 ML IV ×4 (04:00→22:57)
[2017-04-06] MEDS: ONDANSETRON 4 MG INJ IV ×3 (05:10→17:53)
[2017-04-06 06:03] LABS: ADD MAN DIFF? NO
[2017-04-06 06:12] LABS: WHITE BLOOD COUNT 6.3 10^3/ul (4.8-10.8)
[2017-04-06 06:12] LABS: BASOPHILS % 0.5 % (0.0-2.0); EOSINOPHILS # 0.2 10^3/ul (0.0-0.5); EOSINOPHILS % 2.7 % (0.0-7.0); HEMOGLOBIN 10.2 g/dl (14.0-18.0); LYMPHOCYTES # 2.3 10^3/ul (0.8-2.9); LYMPHOCYTES % 36.1 % (18.0-55.0); MEAN CORPUSCULAR HEMOGLOBIN 29.1 pg (29.0-33.0); MEAN CORPUSCULAR VOLUME 85.5 fl (72.0-104.0); MEAN PLATELET VOLUME 10.5 fl (7.4-10.4); MONOCYTE # 0.8 10^3/ul (0.3-0.9); MONOCYTES % 12.7 % (0.0-13.0); NEUTROPHILS % 47.5 % (30.0-74.0); PLATELET COUNT 272 10^3/UL (140-415); RED BLOOD COUNT 3.51 10^6/ul (4.70-6.10); RED CELL DISTRIBUTION WIDTH 13.2 % (11.5-14.5)
[2017-04-06 06:42] LABS: ANION GAP 15 (8-16); BLOOD UREA NITROGEN 3 mg/dl (7-20); CALCIUM 8.5 mg/dl (8.4-10.2); CARBON DIOXIDE 27 mmol/L (21-31); CHLORIDE 99 mmol/L (97-110); CREATININE 0.51 mg/dl (0.61-1.24); GLUCOSE 112 mg/dl (70-220); LIPASE 291 U/L (23-300); MAGNESIUM 1.8 mg/dl (1.7-2.5); POTASSIUM 3.3 mmol/L (3.5-5.1); SODIUM 138 mmol/L (135-144)
[2017-04-06] MEDS: SENNA TAB PO ×2 (08:16→20:00)
[2017-04-06] MEDS: ENOXAPARIN 40 MG/0.4 ML SYG SC (08:27)
[2017-04-06] MEDS: POTASSIUM CHLORIDE (SR) 20 MEQ TAB PO (17:12)
[2017-04-07] MEDS: LORAZEPAM 2 MG INJ IV (00:13)
[2017-04-07] MEDS: ONDANSETRON 4 MG INJ IV ×3 (00:18→22:18)
[2017-04-07] MEDS: morphine 4 MG/ML VIAL IV ×7 (02:07→21:59)
[2017-04-07] MEDS: DEXTROSE 5%-0.45% NACL 1,000 ML IV ×5 (04:00→20:00)
[2017-04-07] MEDS: SENNA TAB PO ×2 (08:07→20:46)
[2017-04-07 08:10] LABS: ANION GAP 22 (8-16); BLOOD UREA NITROGEN 2 mg/dl (7-20); CALCIUM 9.3 mg/dl (8.4-10.2); CARBON DIOXIDE 20 mmol/L (21-31); CHLORIDE 107 mmol/L (97-110); CREATININE 0.54 mg/dl (0.61-1.24); GLUCOSE 113 mg/dl (70-220); LIPASE 312 U/L (23-300); POTASSIUM 4.5 mmol/L (3.5-5.1); SODIUM 144 mmol/L (135-144)
[2017-04-07] MEDS: ENOXAPARIN 40 MG/0.4 ML SYG SC (08:18)
[2017-04-07 08:34] LABS: MAGNESIUM 1.9 mg/dl (1.7-2.5)
[2017-04-07 08:34] LABS: PHOSPHORUS 5.2 mg/dl (2.5-4.9)
[2017-04-08] MEDS: LORAZEPAM 2 MG INJ IV ×3 (00:07→23:51)
[2017-04-08] MEDS: DEXTROSE 5%-0.45% NACL 1,000 ML IV ×5 (00:09→23:43)
[2017-04-08] MEDS: morphine 4 MG/ML VIAL IV ×7 (03:06→22:51)
[2017-04-08 06:31] LABS: ANION GAP 16 (8-16); CARBON DIOXIDE 27 mmol/L (21-31); CHLORIDE 100 mmol/L (97-110); CREATININE 0.54 mg/dl (0.61-1.24); GLUCOSE 113 mg/dl (70-220); LIPASE 356 U/L (23-300); POTASSIUM 3.7 mmol/L (3.5-5.1); SODIUM 139 mmol/L (135-144)
[2017-04-08 06:36] LABS: BLOOD UREA NITROGEN < 2 mg/dl (7-20)
[2017-04-08 06:50] LABS: MAGNESIUM 1.8 mg/dl (1.7-2.5)
[2017-04-08] MEDS: SENNA TAB PO ×2 (09:55→21:00)
[2017-04-08] MEDS: ENOXAPARIN 40 MG/0.4 ML SYG SC (09:59)
[2017-04-08 10:52] LABS: IRON 32 ug/dl (35-150)
[2017-04-08 11:01] LABS: % IRON SATURATION 14 % SAT (22-52); TOTAL IRON BINDING CAPACITY 235 ug/dl (241-421)
[2017-04-08 12:43] LABS: FOLATE 5.8 ng/ml (2.8-20.0)
[2017-04-08] MEDS: ONDANSETRON 4 MG INJ IV (21:04)
[2017-04-09] MEDS: morphine 4 MG/ML VIAL IV ×4 (02:09→11:57)
[2017-04-09] MEDS: ONDANSETRON 4 MG INJ IV ×2 (05:09→20:36)
[2017-04-09 06:17] LABS: ALANINE AMINOTRANSFERASE 41 IU/L (13-69); ALBUMIN 3.3 g/dl (3.3-4.9); ALBUMIN/GLOBULIN RATIO 0.82; ALKALINE PHOSPHATASE 88 IU/L (42-121); ANION GAP 14 (8-16); ASPARTATE AMINO TRANSFERASE 26 IU/L (15-46); BILIRUBIN,INDIRECT 0.2 mg/dl (0-1.1); BILIRUBIN,TOTAL 0.2 mg/dl (0.2-1.3); CALCIUM 9.2 mg/dl (8.4-10.2); CARBON DIOXIDE 29 mmol/L (21-31); CHLORIDE 99 mmol/L (97-110); CREATININE 0.56 mg/dl (0.61-1.24); GLUCOSE 110 mg/dl (70-220); LIPASE 253 U/L (23-300); POTASSIUM 3.6 mmol/L (3.5-5.1); SODIUM 138 mmol/L (135-144); TOTAL PROTEIN 7.3 g/dl (6.1-8.1)
[2017-04-09 06:20] LABS: BLOOD UREA NITROGEN < 2 mg/dl (7-20)
[2017-04-09] MEDS: SENNA TAB PO ×2 (08:47→20:31)
[2017-04-09] MEDS: ENOXAPARIN 40 MG/0.4 ML SYG SC (08:54)
[2017-04-09] MEDS: morphine 2 MG INJ IV (13:25)
[2017-04-09] MEDS: KETOROLAC 30 MG INJ IV (15:52)
[2017-04-09] MEDS: KETOROLAC 15 MG INJ IV (21:43)
[2017-04-09] MEDS: LORAZEPAM 2 MG INJ IV (23:12)
[2017-04-09] MEDS: oxyCODONE 5 MG TAB PO (23:55)
[2017-04-10] MEDS: KETOROLAC 15 MG INJ IV ×3 (03:58→19:50)
[2017-04-10] MEDS: LORAZEPAM 2 MG INJ IV ×2 (06:24→13:42)
[2017-04-10] MEDS: SENNA TAB PO ×2 (10:00→19:59)
[2017-04-10] MEDS: ONDANSETRON 4 MG INJ IV ×2 (10:00→19:50)
[2017-04-10] MEDS: ENOXAPARIN 40 MG/0.4 ML SYG SC (10:01)
[2017-04-10] MEDS: oxyCODONE 5 MG TAB PO (10:59)
[2017-04-10] MEDS: morphine LIQ (10 MG/5 ML) CUP PO (14:05)
[2017-04-10] MEDS: FENTAnyl PATCH 50 MCG/HR TRANSDERM (17:20)
[2017-04-10] MEDS: morphine 2 MG INJ IV (22:16)
[2017-04-11] MEDS: SOD CHLORIDE 0.9% 500 ML IV (02:05)
[2017-04-11] MEDS: HYDROmorphONE 1 MG/ML SYG IV (02:10)
[2017-04-11] MEDS: LORAZEPAM 2 MG INJ IV ×4 (05:10→21:11)
[2017-04-11 06:01] LABS: ADD MAN DIFF? NO
[2017-04-11 06:11] LABS: BASOPHILS % 0.3 % (0.0-2.0); EOSINOPHILS # 0.1 10^3/ul (0.0-0.5); EOSINOPHILS % 1.2 % (0.0-7.0); HEMATOCRIT 31.9 % (42.0-52.0); HEMOGLOBIN 10.3 g/dl (14.0-18.0); LYMPHOCYTES # 2.2 10^3/ul (0.8-2.9); LYMPHOCYTES % 18.4 % (18.0-55.0); MEAN CORPUSCULAR HEMOGLOBIN 28.1 pg (29.0-33.0); MEAN CORPUSCULAR HGB CONC 32.3 g/dl (32.0-37.0); MEAN CORPUSCULAR VOLUME 86.9 fl (72.0-104.0); MEAN PLATELET VOLUME 10.3 fl (7.4-10.4); MONOCYTES % 8.7 % (0.0-13.0); NEUTROPHIL # 8.5 10^3/ul (1.6-7.5); PLATELET COUNT 306 10^3/UL (140-415); RED BLOOD COUNT 3.67 10^6/ul (4.70-6.10); RED CELL DISTRIBUTION WIDTH 13.9 % (11.5-14.5)
[2017-04-11 06:11] LABS: WHITE BLOOD COUNT 11.9 10^3/ul (4.8-10.8)
[2017-04-11 07:04] LABS: ALANINE AMINOTRANSFERASE 49 IU/L (13-69); ALBUMIN 3.5 g/dl (3.3-4.9); ALBUMIN/GLOBULIN RATIO 0.89; ALKALINE PHOSPHATASE 105 IU/L (42-121); AMYLASE 346 U/L (11-123); ANION GAP 13 (8-16); ASPARTATE AMINO TRANSFERASE 30 IU/L (15-46); BILIRUBIN,INDIRECT 0.6 mg/dl (0-1.1); BILIRUBIN,TOTAL 0.6 mg/dl (0.2-1.3); BLOOD UREA NITROGEN 14 mg/dl (7-20); CALCIUM 9.4 mg/dl (8.4-10.2); CARBON DIOXIDE 29 mmol/L (21-31); CHLORIDE 98 mmol/L (97-110); CREATININE 0.71 mg/dl (0.61-1.24); GLUCOSE 100 mg/dl (70-220); LIPASE 699 U/L (23-300); MAGNESIUM 1.9 mg/dl (1.7-2.5); PHOSPHORUS 5.6 mg/dl (2.5-4.9); POTASSIUM 4.4 mmol/L (3.5-5.1); SODIUM 136 mmol/L (135-144); TOTAL PROTEIN 7.4 g/dl (6.1-8.1)
[2017-04-11] MEDS: KETOROLAC 15 MG INJ IV (07:59)
[2017-04-11] MEDS: SENNA TAB PO (08:00)
[2017-04-11] MEDS: ENOXAPARIN 40 MG/0.4 ML SYG SC (08:57)
[2017-04-11] MEDS: ONDANSETRON 4 MG INJ IV ×2 (12:38→19:38)
[2017-04-11] MEDS: morphine 2 MG INJ IV ×5 (13:29→23:41)
[2017-04-11] MEDS ORDERED: LACTATED RINGER'S 1,000 ML IV (14:00)
[2017-04-11] MEDS ORDERED: PIPER-TAZO 3.375 GM IV (PMX) 100 ML IVPB (14:30)
[2017-04-11] MEDS: PIPER-TAZO 3.375 GM IV (PMX) 100 ML IVPB (14:57)
[2017-04-11] MEDS: SOD CHLORIDE 0.9% 1,000 ML IV (15:10)
[2017-04-11 18:02] LABS: HEMATOCRIT 30.4 % (42.0-52.0)
[2017-04-12] MEDS: ONDANSETRON 4 MG INJ IV ×2 (01:02→18:35)
[2017-04-12] MEDS: morphine 2 MG INJ IV ×10 (01:41→22:38)
[2017-04-12] MEDS: LORAZEPAM 2 MG INJ IV (03:07)
[2017-04-12] MEDS: D5-0.2 NACL + KCL 20 MEQ 1,000 ML IV ×4 (03:11→23:30)
[2017-04-12 05:12] LABS: ADD MAN DIFF? NO
[2017-04-12 05:20] LABS: WHITE BLOOD COUNT 10.5 10^3/ul (4.8-10.8)
[2017-04-12 05:20] LABS: BASOPHILS % 0.2 % (0.0-2.0); EOSINOPHILS # 0.1 10^3/ul (0.0-0.5); EOSINOPHILS % 1.1 % (0.0-7.0); HEMOGLOBIN 9.3 g/dl (14.0-18.0); LYMPHOCYTES # 1.7 10^3/ul (0.8-2.9); LYMPHOCYTES % 16.5 % (18.0-55.0); MEAN CORPUSCULAR HEMOGLOBIN 28.6 pg (29.0-33.0); MEAN CORPUSCULAR HGB CONC 33.2 g/dl (32.0-37.0); MEAN CORPUSCULAR VOLUME 86.2 fl (72.0-104.0); MEAN PLATELET VOLUME 10.1 fl (7.4-10.4); MONOCYTE # 1.1 10^3/ul (0.3-0.9); MONOCYTES % 10.4 % (0.0-13.0); NEUTROPHIL # 7.5 10^3/ul (1.6-7.5); NEUTROPHILS % 71.4 % (30.0-74.0); PLATELET COUNT 250 10^3/UL (140-415); RED BLOOD COUNT 3.25 10^6/ul (4.70-6.10); RED CELL DISTRIBUTION WIDTH 13.7 % (11.5-14.5)
[2017-04-12 05:35] LABS: INR 1.33; PROTIME 16.7 Sec (11.9-14.9); PT RATIO 1.3
[2017-04-12 05:36] LABS: PARTIAL THROMBOPLASTIN TIME 40.7 Sec (25.0-35.0)
[2017-04-12 06:06] LABS: ALANINE AMINOTRANSFERASE 39 IU/L (13-69); ALBUMIN 3.4 g/dl (3.3-4.9); ALBUMIN/GLOBULIN RATIO 0.94; ALKALINE PHOSPHATASE 94 IU/L (42-121); ANION GAP 13 (8-16); ASPARTATE AMINO TRANSFERASE 23 IU/L (15-46); BILIRUBIN,INDIRECT 0.5 mg/dl (0-1.1); BILIRUBIN,TOTAL 0.5 mg/dl (0.2-1.3); BLOOD UREA NITROGEN 14 mg/dl (7-20); CALCIUM 9.1 mg/dl (8.4-10.2); CARBON DIOXIDE 28 mmol/L (21-31); CHLORIDE 96 mmol/L (97-110); CREATININE 0.61 mg/dl (0.61-1.24); GLUCOSE 125 mg/dl (70-220); LIPASE 414 U/L (23-300); MAGNESIUM 1.8 mg/dl (1.7-2.5); PHOSPHORUS 4.2 mg/dl (2.5-4.9); POTASSIUM 4.2 mmol/L (3.5-5.1); SODIUM 133 mmol/L (135-144)
[2017-04-12 06:15] LABS: B-TYPE NATRIURETIC PEPTIDE 19 PG/ML (0-125)
[2017-04-13] MEDS: morphine 2 MG INJ IV ×11 (00:41→23:16)
[2017-04-13] MEDS: D5-0.2 NACL + KCL 20 MEQ 1,000 ML IV ×4 (02:42→23:24)
[2017-04-13] MEDS: ONDANSETRON 4 MG INJ IV (08:52)
[2017-04-13] MEDS ORDERED: KETOROLAC 15 MG INJ IV (13:00)
[2017-04-13] MEDS: LIDOCAINE 1% (MPF) 5 ML VIAL SC (15:30)
[2017-04-13] MEDS: FENTAnyl PATCH 75 MCG/HR TRANSDERM (17:56)
[2017-04-14] MEDS: morphine 2 MG INJ IV ×4 (01:24→09:21)
[2017-04-14 06:14] LABS: ADD MAN DIFF? NO
[2017-04-14 06:19] LABS: BASOPHILS % 0.4 % (0.0-2.0); EOSINOPHILS # 0.1 10^3/ul (0.0-0.5); EOSINOPHILS % 1.5 % (0.0-7.0); HEMATOCRIT 26.9 % (42.0-52.0); LYMPHOCYTES % 23.1 % (18.0-55.0); MEAN CORPUSCULAR HEMOGLOBIN 28.6 pg (29.0-33.0); MEAN CORPUSCULAR HGB CONC 33.5 g/dl (32.0-37.0); MEAN CORPUSCULAR VOLUME 85.4 fl (72.0-104.0); MEAN PLATELET VOLUME 11.4 fl (7.4-10.4); MONOCYTES % 11.3 % (0.0-13.0); NEUTROPHIL # 5.4 10^3/ul (1.6-7.5); NEUTROPHILS % 63.5 % (30.0-74.0); PLATELET COUNT 265 10^3/UL (140-415); RED BLOOD COUNT 3.15 10^6/ul (4.70-6.10); RED CELL DISTRIBUTION WIDTH 13.8 % (11.5-14.5)
[2017-04-14 06:19] LABS: WHITE BLOOD COUNT 8.4 10^3/ul (4.8-10.8)
[2017-04-14 06:49] LABS: LACTIC ACID 0.8 mmol/L (0.5-2.0)
[2017-04-14 06:55] LABS: INR 1.27; PROTIME 16.1 Sec (11.9-14.9); PT RATIO 1.3
[2017-04-14 06:56] LABS: ANION GAP 13 (8-16); BLOOD UREA NITROGEN 4 mg/dl (7-20); CALCIUM 9.4 mg/dl (8.4-10.2); CARBON DIOXIDE 28 mmol/L (21-31); CHLORIDE 95 mmol/L (97-110); GLUCOSE 115 mg/dl (70-220); LIPASE 231 U/L (23-300); PARTIAL THROMBOPLASTIN TIME 43.2 Sec (25.0-35.0); POTASSIUM 4.1 mmol/L (3.5-5.1); SODIUM 132 mmol/L (135-144)
[2017-04-14 07:29] LABS: ALANINE AMINOTRANSFERASE 51 IU/L (13-69); ALBUMIN 3.6 g/dl (3.3-4.9); ALBUMIN/GLOBULIN RATIO 1.05; ALKALINE PHOSPHATASE 119 IU/L (42-121); ANION GAP 18 (8-16); ASPARTATE AMINO TRANSFERASE 38 IU/L (15-46); BILIRUBIN,INDIRECT 0.8 mg/dl (0-1.1); BILIRUBIN,TOTAL 0.8 mg/dl (0.2-1.3); BLOOD UREA NITROGEN 4 mg/dl (7-20); CALCIUM 8.9 mg/dl (8.4-10.2); CARBON DIOXIDE 26 mmol/L (21-31); CHLORIDE 95 mmol/L (97-110); CREATININE 0.49 mg/dl (0.61-1.24); GLUCOSE 107 mg/dl (70-220); MAGNESIUM 1.8 mg/dl (1.7-2.5); PHOSPHORUS 4.7 mg/dl (2.5-4.9); POTASSIUM 4.5 mmol/L (3.5-5.1); SODIUM 134 mmol/L (135-144)
[2017-04-14 07:53] LABS: B-TYPE NATRIURETIC PEPTIDE 32 PG/ML (0-125)
[2017-04-14] MEDS ORDERED: HYDROmorphONE 1 MG/ML SYG IV (09:30)
[2017-04-14] MEDS ORDERED: HYDROmorphONE 0.5 MG/0.5 ML SYG IV (09:30)
[2017-04-14] MEDS ORDERED: HYDROCODONE/APAP (5/325) TAB PO ×2 (09:30)
[2017-04-14] MEDS: HYDROmorphONE 0.2 MG/ML PCA IV (11:20)
[2017-04-14] MEDS: ONDANSETRON 4 MG INJ IV (11:22)
[2017-04-14] MEDS: ACCU-CHEK XX ×2 (12:00→17:41)
[2017-04-14] MEDS: TPN 1,000 ML IV (12:25)
[2017-04-14 14:58] LABS: ALANINE AMINOTRANSFERASE 69 IU/L (13-69); ALBUMIN 3.7 g/dl (3.3-4.9); ALBUMIN/GLOBULIN RATIO 0.92; ALKALINE PHOSPHATASE 127 IU/L (42-121); ANION GAP 15 (8-16); ASPARTATE AMINO TRANSFERASE 63 IU/L (15-46); BLOOD UREA NITROGEN 5 mg/dl (7-20); CALCIUM 9.1 mg/dl (8.4-10.2); CARBON DIOXIDE 30 mmol/L (21-31); CHLORIDE 93 mmol/L (97-110); GLUCOSE 134 mg/dl (70-220); MAGNESIUM 1.8 mg/dl (1.7-2.5); PHOSPHORUS 4.4 mg/dl (2.5-4.9); POTASSIUM 4.5 mmol/L (3.5-5.1); SODIUM 133 mmol/L (135-144); TOTAL PROTEIN 7.7 g/dl (6.1-8.1); TRIGLYCERIDES 114 mg/dl (0-149)
[2017-04-15] MEDS: ACCU-CHEK XX ×4 (06:00→21:00)
[2017-04-15] MEDS: TPN 1,000 ML IV (06:19)
[2017-04-15 07:17] LABS: ANION GAP 17 (8-16); BLOOD UREA NITROGEN 8 mg/dl (7-20); CARBON DIOXIDE 27 mmol/L (21-31); CHLORIDE 96 mmol/L (97-110); CREATININE 0.48 mg/dl (0.61-1.24); GLUCOSE 115 mg/dl (70-220); MAGNESIUM 1.8 mg/dl (1.7-2.5); PHOSPHORUS 4.3 mg/dl (2.5-4.9); SODIUM 136 mmol/L (135-144)
[2017-04-15] MEDS: LIDOCAINE 1% (MDV) 20 ML INJ (11:35)
[2017-04-15] MEDS: FENTAnyl 50 MCG/ML VIAL ×2 (13:07→13:11)
[2017-04-15] MEDS: SOD CHLORIDE 0.9% 500 ML (13:08)
[2017-04-15] MEDS: HYDROmorphONE 1 MG/ML SYG IV ×2 (13:09→15:50)
[2017-04-15] MEDS: MIDAZOLAM 1 MG/ML 2 ML INJ (13:09)
[2017-04-15] MEDS: HYDROmorphONE 0.2 MG/ML PCA IV (14:00)
[2017-04-16] MEDS: TPN 1,000 ML IV ×3 (03:28→20:33)
[2017-04-16] MEDS ORDERED: ACETAMINOPHEN 650 MG SUPP PR (03:30)
[2017-04-16 04:25] LABS: ANION GAP 17 (8-16); BLOOD UREA NITROGEN 13 mg/dl (7-20); CALCIUM 8.9 mg/dl (8.4-10.2); CARBON DIOXIDE 26 mmol/L (21-31); CHLORIDE 97 mmol/L (97-110); CREATININE 0.53 mg/dl (0.61-1.24); GLUCOSE 116 mg/dl (70-220); MAGNESIUM 1.8 mg/dl (1.7-2.5); PHOSPHORUS 4.8 mg/dl (2.5-4.9); POTASSIUM 4.3 mmol/L (3.5-5.1); SODIUM 136 mmol/L (135-144)
[2017-04-16] MEDS: HYDROmorphONE 0.2 MG/ML PCA IV (05:06)
[2017-04-16] MEDS ORDERED: PIPER-TAZO 3.375 GM IV (PMX) 100 ML IVPB (08:30)
[2017-04-16] MEDS: ACCU-CHEK XX ×2 (09:43→20:40)
[2017-04-16 09:49] LABS: ADD UMIC YES; UR ASCORBIC ACID NEGATIVE (NEGATIVE); UR BACTERIA FEW /HPF (NONE SEEN); UR BILIRUBIN (Dip) NEGATIVE (NEGATIVE); UR BLOOD (Dip) 1+ mg/dL (NEGATIVE); UR CLARITY SLIGHTLY CLOUDY (CLEAR); UR COLOR AMBER (YELLOW); UR GLUCOSE (Dip) NEGATIVE (NEGATIVE); UR KETONES (Dip) NEGATIVE (NEGATIVE); UR LEUKOCYTE ESTERASE (Dip) NEGATIVE Leu/ul (NEGATIVE); UR MUCUS MODERATE /HPF (NONE SEEN); UR NITRITE (Dip) NEGATIVE (NEGATIVE); UR RBC 1 /HPF (0-5); UR SPECIFIC GRAVITY (Dip) 1.021 (1.003-1.030); UR TOTAL PROTEIN (Dip) NEGATIVE (NEGATIVE); UR UROBILINOGEN (Dip) 1+ mg/dL (NEGATIVE); UR WBC 1 /HPF (0-5)
[2017-04-16] MEDS: SOD CHLORIDE 0.9% IVPB (09:49)
[2017-04-16] MEDS: PIPERACILLIN IVPB (09:49)
[2017-04-16] MEDS: TAZO IVPB (09:49)
[2017-04-16] MEDS: PIPER-TAZO 3.375 GM IV (PMX) 100 ML IVPB (18:57)
[2017-04-17] MEDS: PIPER-TAZO 3.375 GM IV (PMX) 100 ML IVPB ×5 (00:07→23:31)
[2017-04-17 05:39] LABS: ADD MAN DIFF? NO
[2017-04-17 05:44] LABS: WHITE BLOOD COUNT 8.7 10^3/ul (4.8-10.8)
[2017-04-17 05:44] LABS: BASOPHILS % 0.2 % (0.0-2.0); EOSINOPHILS # 0.2 10^3/ul (0.0-0.5); EOSINOPHILS % 1.7 % (0.0-7.0); HEMATOCRIT 26.1 % (42.0-52.0); HEMOGLOBIN 8.6 g/dl (14.0-18.0); LYMPHOCYTES # 1.8 10^3/ul (0.8-2.9); LYMPHOCYTES % 20.8 % (18.0-55.0); MEAN CORPUSCULAR HEMOGLOBIN 28.4 pg (29.0-33.0); MEAN CORPUSCULAR VOLUME 86.1 fl (72.0-104.0); MEAN PLATELET VOLUME 10.7 fl (7.4-10.4); MONOCYTE # 0.9 10^3/ul (0.3-0.9); MONOCYTES % 10.4 % (0.0-13.0); NEUTROPHIL # 5.8 10^3/ul (1.6-7.5); NEUTROPHILS % 66.6 % (30.0-74.0); PLATELET COUNT 257 10^3/UL (140-415); RED BLOOD COUNT 3.03 10^6/ul (4.70-6.10); RED CELL DISTRIBUTION WIDTH 13.8 % (11.5-14.5)
[2017-04-17 06:10] LABS: INR 1.26; PT RATIO 1.3
[2017-04-17 06:11] LABS: PARTIAL THROMBOPLASTIN TIME 41.2 Sec (25.0-35.0)
[2017-04-17 06:13] LABS: ALANINE AMINOTRANSFERASE 109 IU/L (13-69); ALBUMIN 3.4 g/dl (3.3-4.9); ALBUMIN/GLOBULIN RATIO 0.87; ALKALINE PHOSPHATASE 136 IU/L (42-121); ANION GAP 12 (8-16); ASPARTATE AMINO TRANSFERASE 88 IU/L (15-46); BILIRUBIN,INDIRECT 0.6 mg/dl (0-1.1); BILIRUBIN,TOTAL 0.6 mg/dl (0.2-1.3); BLOOD UREA NITROGEN 9 mg/dl (7-20); CARBON DIOXIDE 26 mmol/L (21-31); CHLORIDE 100 mmol/L (97-110); CREATININE 0.43 mg/dl (0.61-1.24); GLUCOSE 125 mg/dl (70-220); MAGNESIUM 1.9 mg/dl (1.7-2.5); POTASSIUM 3.9 mmol/L (3.5-5.1); SODIUM 134 mmol/L (135-144); TOTAL PROTEIN 7.3 g/dl (6.1-8.1)
[2017-04-17 08:00] LABS: LACTIC ACID 1.3 mmol/L (0.5-2.0)
[2017-04-17] MEDS: ACCU-CHEK XX ×2 (09:42→20:45)
[2017-04-17] MEDS: BISACODYL 10 MG SUPP PR (11:21)
[2017-04-17] MEDS: HYDROmorphONE 0.2 MG/ML PCA IV (11:23)
[2017-04-17] MEDS: LORAZEPAM 2 MG INJ IV ×2 (11:58→23:26)
[2017-04-17] MEDS: LACTULOSE 30ML CUP PO ×2 (13:45→20:46)
[2017-04-17] MEDS: TPN 1,000 ML IV (16:59)
[2017-04-18] MEDS: PIPER-TAZO 3.375 GM IV (PMX) 100 ML IVPB ×3 (05:30→18:20)
[2017-04-18 05:40] LABS: ADD MAN DIFF? NO
[2017-04-18 05:41] LABS: BASOPHILS % 0.5 % (0.0-2.0); EOSINOPHILS # 0.1 10^3/ul (0.0-0.5); EOSINOPHILS % 1.3 % (0.0-7.0); HEMATOCRIT 26.5 % (42.0-52.0); HEMOGLOBIN 8.7 g/dl (14.0-18.0); LYMPHOCYTES # 1.9 10^3/ul (0.8-2.9); MEAN CORPUSCULAR HEMOGLOBIN 27.9 pg (29.0-33.0); MEAN CORPUSCULAR HGB CONC 32.8 g/dl (32.0-37.0); MEAN CORPUSCULAR VOLUME 84.9 fl (72.0-104.0); MEAN PLATELET VOLUME 10.6 fl (7.4-10.4); MONOCYTE # 0.8 10^3/ul (0.3-0.9); MONOCYTES % 9.1 % (0.0-13.0); NEUTROPHIL # 5.8 10^3/ul (1.6-7.5); NEUTROPHILS % 66.8 % (30.0-74.0); PLATELET COUNT 328 10^3/UL (140-415); RED BLOOD COUNT 3.12 10^6/ul (4.70-6.10); RED CELL DISTRIBUTION WIDTH 13.8 % (11.5-14.5)
[2017-04-18 05:41] LABS: WHITE BLOOD COUNT 8.7 10^3/ul (4.8-10.8)
[2017-04-18 06:07] LABS: ALANINE AMINOTRANSFERASE 345 IU/L (13-69); ALBUMIN 3.5 g/dl (3.3-4.9); ALBUMIN/GLOBULIN RATIO 0.83; ALKALINE PHOSPHATASE 173 IU/L (42-121); AMYLASE 58 U/L (11-123); ANION GAP 14 (8-16); ASPARTATE AMINO TRANSFERASE 311 IU/L (15-46); BILIRUBIN,INDIRECT 0.5 mg/dl (0-1.1); BILIRUBIN,TOTAL 0.5 mg/dl (0.2-1.3); BLOOD UREA NITROGEN 7 mg/dl (7-20); CALCIUM 9.2 mg/dl (8.4-10.2); CARBON DIOXIDE 26 mmol/L (21-31); CHLORIDE 102 mmol/L (97-110); CREATININE 0.49 mg/dl (0.61-1.24); GLUCOSE 104 mg/dl (70-220); LIPASE 39 U/L (23-300); POTASSIUM 3.8 mmol/L (3.5-5.1); SODIUM 138 mmol/L (135-144); TOTAL PROTEIN 7.7 g/dl (6.1-8.1)
[2017-04-18 06:14] LABS: B-TYPE NATRIURETIC PEPTIDE 34 PG/ML (0-125)
[2017-04-18 06:14] LABS: CALCIUM 8.8 mg/dl (8.4-10.2)
[2017-04-18 06:15] LABS: MAGNESIUM 1.9 mg/dl (1.7-2.5)
[2017-04-18 06:15] LABS: PHOSPHORUS 3.9 mg/dl (2.5-4.9)
[2017-04-18 06:19] LABS: INR 1.24; PROTIME 15.8 Sec (11.9-14.9); PT RATIO 1.2
[2017-04-18] MEDS: LORAZEPAM 2 MG INJ IV ×2 (08:10→23:47)
[2017-04-18] MEDS: LACTULOSE 30ML CUP PO ×3 (08:22→21:00)
[2017-04-18] MEDS: ACCU-CHEK XX ×2 (08:22→21:00)
[2017-04-18] MEDS: TPN 1,000 ML IV (17:19)
[2017-04-19] MEDS: LORAZEPAM 2 MG INJ IV ×2 (05:17→11:14)
[2017-04-19 06:46] LABS: ADD MAN DIFF? NO
[2017-04-19 06:48] LABS: WHITE BLOOD COUNT 7.4 10^3/ul (4.8-10.8)
[2017-04-19 06:48] LABS: BASOPHILS % 0.5 % (0.0-2.0); EOSINOPHILS # 0.2 10^3/ul (0.0-0.5); EOSINOPHILS % 2.2 % (0.0-7.0); HEMATOCRIT 25.8 % (42.0-52.0); HEMOGLOBIN 8.5 g/dl (14.0-18.0); LYMPHOCYTES # 2.2 10^3/ul (0.8-2.9); LYMPHOCYTES % 29.2 % (18.0-55.0); MEAN CORPUSCULAR HEMOGLOBIN 28.2 pg (29.0-33.0); MEAN CORPUSCULAR HGB CONC 32.9 g/dl (32.0-37.0); MEAN CORPUSCULAR VOLUME 85.7 fl (72.0-104.0); MEAN PLATELET VOLUME 10.3 fl (7.4-10.4); MONOCYTE # 0.8 10^3/ul (0.3-0.9); MONOCYTES % 10.1 % (0.0-13.0); NEUTROPHIL # 4.3 10^3/ul (1.6-7.5); NEUTROPHILS % 57.7 % (30.0-74.0); PLATELET COUNT 312 10^3/UL (140-415); RED BLOOD COUNT 3.01 10^6/ul (4.70-6.10); RED CELL DISTRIBUTION WIDTH 13.9 % (11.5-14.5)
[2017-04-19 07:11] LABS: INR 1.18; PROTIME 15.2 Sec (11.9-14.9); PT RATIO 1.2
[2017-04-19 07:12] LABS: PARTIAL THROMBOPLASTIN TIME 34.6 Sec (25.0-35.0)
[2017-04-19 07:21] LABS: ALANINE AMINOTRANSFERASE 358 IU/L (13-69); ALBUMIN 3.5 g/dl (3.3-4.9); ALBUMIN/GLOBULIN RATIO 0.87; ALKALINE PHOSPHATASE 156 IU/L (42-121); ANION GAP 13 (8-16); ASPARTATE AMINO TRANSFERASE 220 IU/L (15-46); BILIRUBIN,INDIRECT 0.2 mg/dl (0-1.1); BILIRUBIN,TOTAL 0.2 mg/dl (0.2-1.3); BLOOD UREA NITROGEN 5 mg/dl (7-20); CARBON DIOXIDE 24 mmol/L (21-31); CHLORIDE 104 mmol/L (97-110); CREATININE 0.42 mg/dl (0.61-1.24); GLUCOSE 115 mg/dl (70-220); POTASSIUM 3.4 mmol/L (3.5-5.1); SODIUM 138 mmol/L (135-144); TOTAL PROTEIN 7.5 g/dl (6.1-8.1)
[2017-04-19 07:33] LABS: PHOSPHORUS 3.5 mg/dl (2.5-4.9)
[2017-04-19] MEDS: LACTULOSE 30ML CUP PO ×3 (09:00→21:00)
[2017-04-19] MEDS: ACCU-CHEK XX ×2 (09:00→20:45)
[2017-04-19] MEDS: TPN 1,000 ML IV (11:39)
[2017-04-20] MEDS: LORAZEPAM 2 MG INJ IV ×2 (00:11→05:30)
[2017-04-20] MEDS: TPN 1,000 ML IV (00:20)
[2017-04-20] MEDS: HYDROmorphONE 1 MG/ML SYG IV (02:25)
[2017-04-20] MEDS: HYDROmorphONE 0.5 MG/0.5 ML SYG IV ×4 (02:28→14:57)
[2017-04-20 06:22] LABS: ADD MAN DIFF? NO
[2017-04-20 06:36] LABS: WHITE BLOOD COUNT 6.9 10^3/ul (4.8-10.8)
[2017-04-20 06:36] LABS: BASOPHILS % 0.6 % (0.0-2.0); EOSINOPHILS # 0.2 10^3/ul (0.0-0.5); EOSINOPHILS % 2.5 % (0.0-7.0); HEMATOCRIT 27.7 % (42.0-52.0); LYMPHOCYTES # 2.1 10^3/ul (0.8-2.9); LYMPHOCYTES % 30.7 % (18.0-55.0); MEAN CORPUSCULAR HEMOGLOBIN 27.7 pg (29.0-33.0); MEAN CORPUSCULAR HGB CONC 32.5 g/dl (32.0-37.0); MEAN CORPUSCULAR VOLUME 85.2 fl (72.0-104.0); MEAN PLATELET VOLUME 10.3 fl (7.4-10.4); MONOCYTE # 0.7 10^3/ul (0.3-0.9); MONOCYTES % 10.1 % (0.0-13.0); NEUTROPHIL # 3.9 10^3/ul (1.6-7.5); NEUTROPHILS % 55.8 % (30.0-74.0); PLATELET COUNT 322 10^3/UL (140-415); RED BLOOD COUNT 3.25 10^6/ul (4.70-6.10)
[2017-04-20 06:51] LABS: INR 1.18; PROTIME 15.2 Sec (11.9-14.9); PT RATIO 1.2
[2017-04-20 06:52] LABS: PARTIAL THROMBOPLASTIN TIME 34.9 Sec (25.0-35.0)
[2017-04-20 06:59] LABS: PHOSPHORUS 3.8 mg/dl (2.5-4.9)
[2017-04-20 06:59] LABS: MAGNESIUM 2.1 mg/dl (1.7-2.5)
[2017-04-20 07:02] LABS: ALANINE AMINOTRANSFERASE 315 IU/L (13-69); ALBUMIN 3.8 g/dl (3.3-4.9); ALBUMIN/GLOBULIN RATIO 1.02; ALKALINE PHOSPHATASE 147 IU/L (42-121); ANION GAP 16 (8-16); ASPARTATE AMINO TRANSFERASE 140 IU/L (15-46); BILIRUBIN,INDIRECT 0.3 mg/dl (0-1.1); BILIRUBIN,TOTAL 0.3 mg/dl (0.2-1.3); BLOOD UREA NITROGEN 6 mg/dl (7-20); CARBON DIOXIDE 24 mmol/L (21-31); CHLORIDE 104 mmol/L (97-110); CREATININE 0.44 mg/dl (0.61-1.24); GLUCOSE 115 mg/dl (70-220); POTASSIUM 3.3 mmol/L (3.5-5.1); SODIUM 141 mmol/L (135-144); TOTAL PROTEIN 7.5 g/dl (6.1-8.1)
[2017-04-20] MEDS: LACTULOSE 30ML CUP PO (08:30)
[2017-04-20] MEDS: ACCU-CHEK XX (08:31)
[2017-04-20] MEDS ORDERED: LACTULOSE 30ML CUP PO (21:00)
== END 2017-04-20 17:00 | disposition home or self-care (01) | DRG 439 ==
LOC: MS2 03-26 23:48 → FTE 23:12 → MS3 03-22 02:51 → MS4 03-22 20:25
PROC: 05HY33Z Insertion of Infusion Device into Upper Vein, Percutaneous Approach (ICD-10-PCS; 2017-04-13)
PROC: 0F9G30Z Drainage of Pancreas with Drainage Device, Percutaneous Approach (ICD-10-PCS; principal; 2017-04-15)
DX: K85.10 Biliary acute pancreatitis without necrosis or infection (principal); K86.3 Pseudocyst of pancreas; E87.6 Hypokalemia; D64.9 Anemia, unspecified; D72.829 Elevated white blood cell count, unspecified; K80.20 Calculus of gallbladder without cholecystitis without obstruction; F32.89 Other specified depressive episodes; K59.00 Constipation, unspecified
CPT/HCPCS: 36415; 36569; 71045; 74150; 74176; 74177; 76705; 76937; 77012; 80048; 80053; 80061; 80202; 81001; 82150; 82310; 82607; 82728; 82746; 82962; 83036; 83540; 83605; 83615; 83690; 83735; 83880; 84100; 84134; 84443; 84478; 85014; 85018; 85025; 85610; 85730; 87040; 87070; 87075; 96374; 96375; 96376; 99285-25

== ENCOUNTER 2017-04-28 16:19 | Inpatient (IN) | payer OTHER ==
[2017-04-28] MEDS: ONDANSETRON 4 MG INJ IV ×3 (18:10→23:10)
[2017-04-28] MEDS: morphine 4 MG/ML VIAL IV ×2 (18:10→20:50)
[2017-04-28] MEDS: SODIUM CHLORIDE 0.9% 1L BAG IV* (18:10)
[2017-04-28 18:13] LABS: ADD MAN DIFF? NO
[2017-04-28 18:15] LABS: BASOPHILS % 0.4 % (0.0-2.0); EOSINOPHILS % 0.1 % (0.0-7.0); HEMATOCRIT 37.9 % (42.0-52.0); HEMOGLOBIN 12.3 g/dl (14.0-18.0); LYMPHOCYTES # 1.3 10^3/ul (0.8-2.9); LYMPHOCYTES % 13.6 % (18.0-55.0); MEAN CORPUSCULAR HEMOGLOBIN 26.9 pg (29.0-33.0); MEAN CORPUSCULAR HGB CONC 32.5 g/dl (32.0-37.0); MEAN CORPUSCULAR VOLUME 82.8 fl (72.0-104.0); MEAN PLATELET VOLUME 10.6 fl (7.4-10.4); MONOCYTE # 0.9 10^3/ul (0.3-0.9); MONOCYTES % 10.1 % (0.0-13.0); NEUTROPHIL # 7.1 10^3/ul (1.6-7.5); NEUTROPHILS % 75.5 % (30.0-74.0); PLATELET COUNT 380 10^3/UL (140-415); RED BLOOD COUNT 4.58 10^6/ul (4.70-6.10); RED CELL DISTRIBUTION WIDTH 14.7 % (11.5-14.5)
[2017-04-28 18:15] LABS: WHITE BLOOD COUNT 9.4 10^3/ul (4.8-10.8)
[2017-04-28 18:36] LABS: INR 1.21; PROTIME 15.5 Sec (11.9-14.9); PT RATIO 1.2
[2017-04-28 18:37] LABS: PARTIAL THROMBOPLASTIN TIME 37.1 Sec (25.0-35.0)
[2017-04-28 18:42] LABS: LIPASE 230 U/L (23-300)
[2017-04-28 18:42] LABS: ALANINE AMINOTRANSFERASE 99 IU/L (13-69); ALBUMIN 4.8 g/dl (3.3-4.9); ALBUMIN/GLOBULIN RATIO 0.92; ALKALINE PHOSPHATASE 175 IU/L (42-121); ANION GAP 23 (8-16); ASPARTATE AMINO TRANSFERASE 52 IU/L (15-46); BILIRUBIN,INDIRECT 1.1 mg/dl (0-1.1); BILIRUBIN,TOTAL 1.1 mg/dl (0.2-1.3); BLOOD UREA NITROGEN 8 mg/dl (7-20); CALCIUM 10.3 mg/dl (8.4-10.2); CARBON DIOXIDE 23 mmol/L (21-31); CHLORIDE 96 mmol/L (97-110); CREATININE 0.68 mg/dl (0.61-1.24); GLUCOSE 130 mg/dl (70-220); POTASSIUM 3.9 mmol/L (3.5-5.1); SODIUM 138 mmol/L (135-144)
[2017-04-28 18:43] LABS: LACTIC ACID 1.8 mmol/L (0.5-2.0)
[2017-04-28 18:58] LABS: TROPONIN-I < 0.012 ng/ml (0.00-0.12)
[2017-04-28] MEDS: PIPER-TAZO 3.375 GM IV (PMX) 100 ML IVPB (19:32)
[2017-04-28 21:49] LABS: LACTIC ACID 1.1 mmol/L (0.5-2.0)
[2017-04-28] MEDS: ACETAMINOPHEN 325 MG TAB PO (22:44)
[2017-04-28] MEDS ORDERED: NACL 0.9% 3 ML SYG IV (23:00)
[2017-04-28] MEDS: HYDROmorphONE 1 MG/ML SYG IV (23:10)
[2017-04-28] MEDS: SOD CHLORIDE 0.9% 1,000 ML IV (23:42)
[2017-04-29 00:26] LABS: LACTIC ACID 0.8 mmol/L (0.5-2.0)
[2017-04-29] MEDS: HYDROmorphONE 1 MG/ML SYG IV ×4 (05:45→21:36)
[2017-04-29] MEDS: ONDANSETRON 4 MG INJ IV ×3 (05:45→21:36)
[2017-04-29 05:53] LABS: ADD MAN DIFF? NO
[2017-04-29 06:00] LABS: ABNORMAL IP MESSAGE 1; BASOPHILS % 0.3 % (0.0-2.0); EOSINOPHILS % 0.2 % (0.0-7.0); HEMOGLOBIN 10.3 g/dl (14.0-18.0); LYMPHOCYTES # 1.9 10^3/ul (0.8-2.9); LYMPHOCYTES % 15.5 % (18.0-55.0); MEAN CORPUSCULAR HEMOGLOBIN 26.8 pg (29.0-33.0); MEAN CORPUSCULAR HGB CONC 31.2 g/dl (32.0-37.0); MEAN CORPUSCULAR VOLUME 85.7 fl (72.0-104.0); MEAN PLATELET VOLUME 12.3 fl (7.4-10.4); MONOCYTE # 1.9 10^3/ul (0.3-0.9); MONOCYTES % 15.8 % (0.0-13.0); NEUTROPHIL # 8.1 10^3/ul (1.6-7.5); NEUTROPHILS % 67.7 % (30.0-74.0); PLATELET COUNT 261 10^3/UL (140-415); POSITIVE DIFF @See below; RED BLOOD COUNT 3.85 10^6/ul (4.70-6.10); RED CELL DISTRIBUTION WIDTH 15.1 % (11.5-14.5)
[2017-04-29 06:28] LABS: ALANINE AMINOTRANSFERASE 69 IU/L (13-69); ALBUMIN 3.6 g/dl (3.3-4.9); ALBUMIN/GLOBULIN RATIO 0.87; ALKALINE PHOSPHATASE 112 IU/L (42-121); ANION GAP 16 (8-16); ASPARTATE AMINO TRANSFERASE 33 IU/L (15-46); BLOOD UREA NITROGEN 7 mg/dl (7-20); CALCIUM 9.1 mg/dl (8.4-10.2); CARBON DIOXIDE 25 mmol/L (21-31); CHLORIDE 102 mmol/L (97-110); CREATININE 0.61 mg/dl (0.61-1.24); GLUCOSE 94 mg/dl (70-220); POTASSIUM 4.1 mmol/L (3.5-5.1); SODIUM 139 mmol/L (135-144); TOTAL PROTEIN 7.7 g/dl (6.1-8.1)
[2017-04-29] MEDS: SOD CHLORIDE 0.9% 1,000 ML IV ×5 (07:20→21:03)
[2017-04-29] MEDS: ACETAMINOPHEN 325 MG TAB PO ×2 (07:20→16:14)
[2017-04-29] MEDS ORDERED: VANCOMYCIN IV PER PHARMACY XX (07:30)
[2017-04-29] MEDS: PIPER-TAZO 3.375 GM IV (PMX) 100 ML IVPB ×4 (08:27→23:58)
[2017-04-29] MEDS ORDERED: VANCOMYCIN 1 GM 250 ML IVPB (09:00)
[2017-04-29] MEDS: SOD CHLORIDE 0.9% 100 ML (09:45)
[2017-04-29] MEDS: IOHEXOL 300MG/ML 150 ML BTL (09:45)
[2017-04-29] MEDS: VANCOMYCIN 1 GM 250 ML IVPB (10:04)
[2017-04-29] MEDS ORDERED: VANCOMYCIN 750 MG in DEXTROSE 5% 150 ML IVPB (17:00)
[2017-04-29 17:25] LABS: ADD UMIC YES; UR ASCORBIC ACID NEGATIVE (NEGATIVE); UR BILIRUBIN (Dip) NEGATIVE (NEGATIVE); UR BLOOD (Dip) 1+ mg/dL (NEGATIVE); UR CLARITY CLEAR (CLEAR); UR COLOR YELLOW (YELLOW); UR GLUCOSE (Dip) NEGATIVE (NEGATIVE); UR KETONES (Dip) 1+ mg/dL (NEGATIVE); UR LEUKOCYTE ESTERASE (Dip) NEGATIVE Leu/ul (NEGATIVE); UR NITRITE (Dip) NEGATIVE (NEGATIVE); UR RBC 1 /HPF (0-5); UR SPECIFIC GRAVITY (Dip) 1.031 (1.003-1.030); UR TOTAL PROTEIN (Dip) NEGATIVE (NEGATIVE); UR UROBILINOGEN (Dip) 1+ mg/dL (NEGATIVE); UR WBC 1 /HPF (0-5)
[2017-04-29] MEDS: FAMOTIDINE 20 MG INJ IV (21:03)
[2017-04-30] MEDS: ACETAMINOPHEN 325 MG TAB PO (01:19)
[2017-04-30] MEDS: HYDROmorphONE 1 MG/ML SYG IV ×4 (01:32→20:45)
[2017-04-30] MEDS: ONDANSETRON 4 MG INJ IV ×3 (01:32→11:49)
[2017-04-30] MEDS ORDERED: LORAZEPAM 2 MG INJ (02:56)
[2017-04-30] MEDS: SOD CHLORIDE 0.9% 1,000 ML IV ×3 (04:00→19:00)
[2017-04-30 05:03] LABS: ADD MAN DIFF? NO
[2017-04-30 05:07] LABS: ABNORMAL IP MESSAGE 1; BASOPHILS % 0.2 % (0.0-2.0); EOSINOPHILS % 0.3 % (0.0-7.0); HEMATOCRIT 28.4 % (42.0-52.0); HEMOGLOBIN 8.7 g/dl (14.0-18.0); LYMPHOCYTES # 1.9 10^3/ul (0.8-2.9); LYMPHOCYTES % 15.5 % (18.0-55.0); MEAN CORPUSCULAR HEMOGLOBIN 26.4 pg (29.0-33.0); MEAN CORPUSCULAR HGB CONC 30.6 g/dl (32.0-37.0); MEAN CORPUSCULAR VOLUME 86.3 fl (72.0-104.0); MEAN PLATELET VOLUME 11.2 fl (7.4-10.4); MONOCYTE # 1.7 10^3/ul (0.3-0.9); MONOCYTES % 13.6 % (0.0-13.0); NEUTROPHIL # 8.7 10^3/ul (1.6-7.5); NEUTROPHILS % 70.1 % (30.0-74.0); PLATELET COUNT 254 10^3/UL (140-415); POSITIVE DIFF @See below; RED BLOOD COUNT 3.29 10^6/ul (4.70-6.10); RED CELL DISTRIBUTION WIDTH 15.1 % (11.5-14.5)
[2017-04-30 05:07] LABS: WHITE BLOOD COUNT 12.4 10^3/ul (4.8-10.8)
[2017-04-30 05:37] LABS: INR 1.54; PROTIME 18.8 Sec (11.9-14.9); PT RATIO 1.5
[2017-04-30 05:38] LABS: PARTIAL THROMBOPLASTIN TIME 48.6 Sec (25.0-35.0)
[2017-04-30 05:47] LABS: ALBUMIN/GLOBULIN RATIO 0.87; ANION GAP 15 (8-16)
[2017-04-30 05:48] LABS: LACTIC ACID 0.8 mmol/L (0.5-2.0)
[2017-04-30 05:57] LABS: ALANINE AMINOTRANSFERASE 55 IU/L (13-69); ALBUMIN 2.7 g/dl (3.3-4.9); ALKALINE PHOSPHATASE 96 IU/L (42-121); ASPARTATE AMINO TRANSFERASE 18 IU/L (15-46); BILIRUBIN,INDIRECT 0.9 mg/dl (0-1.1); BILIRUBIN,TOTAL 0.9 mg/dl (0.2-1.3); BLOOD UREA NITROGEN 2 mg/dl (7-20); CALCIUM 8.3 mg/dl (8.4-10.2); CARBON DIOXIDE 22 mmol/L (21-31); CHLORIDE 101 mmol/L (97-110); CREATININE 0.55 mg/dl (0.61-1.24); GLUCOSE 88 mg/dl (70-220); MAGNESIUM 1.7 mg/dl (1.7-2.5); POTASSIUM 3.6 mmol/L (3.5-5.1); SODIUM 134 mmol/L (135-144); TOTAL PROTEIN 5.8 g/dl (6.1-8.1)
[2017-04-30 06:19] LABS: CALCIUM 8.5 mg/dl (8.4-10.2)
[2017-04-30 06:19] LABS: PHOSPHORUS 2.9 mg/dl (2.5-4.9)
[2017-04-30] MEDS: SOD CHLORIDE 0.9% 100 ML (10:00)
[2017-04-30] MEDS: MIDAZOLAM 1 MG/ML 2 ML INJ (10:15)
[2017-04-30] MEDS: CEFAZOLIN 1 GM/50 ML (PMX) 50 ML IVPB (10:15)
[2017-04-30] MEDS: FENTAnyl 50 MCG/ML VIAL (10:16)
[2017-04-30] MEDS: LIDOCAINE 1% (MDV) 20 ML INJ (10:20)
[2017-04-30] MEDS: PIPER-TAZO 3.375 GM IV (PMX) 100 ML IVPB ×4 (11:50→23:42)
[2017-04-30] MEDS: FAMOTIDINE 20 MG INJ IV ×2 (11:50→20:45)
[2017-04-30] MEDS: HYDROCODONE/APAP (7.5/325) TAB PO (14:40)
[2017-04-30] MEDS: LORAZEPAM 2 MG INJ IV ×2 (15:06→23:42)
[2017-05-01] MEDS: HYDROmorphONE 1 MG/ML SYG IV ×5 (00:38→20:26)
[2017-05-01] MEDS: SOD CHLORIDE 0.9% 1,000 ML IV ×4 (00:40→20:36)
[2017-05-01] MEDS: HYDROCODONE/APAP (7.5/325) TAB PO (03:14)
[2017-05-01 05:06] LABS: ADD MAN DIFF? NO
[2017-05-01 05:07] LABS: BASOPHILS % 0.2 % (0.0-2.0); EOSINOPHILS # 0.1 10^3/ul (0.0-0.5); HEMOGLOBIN 9.1 g/dl (14.0-18.0); LYMPHOCYTES # 2.1 10^3/ul (0.8-2.9); LYMPHOCYTES % 22.8 % (18.0-55.0); MEAN CORPUSCULAR HEMOGLOBIN 26.3 pg (29.0-33.0); MEAN CORPUSCULAR HGB CONC 31.4 g/dl (32.0-37.0); MEAN CORPUSCULAR VOLUME 83.8 fl (72.0-104.0); MEAN PLATELET VOLUME 11.1 fl (7.4-10.4); MONOCYTES % 10.7 % (0.0-13.0); NEUTROPHIL # 5.9 10^3/ul (1.6-7.5); NEUTROPHILS % 65.1 % (30.0-74.0); PLATELET COUNT 266 10^3/UL (140-415); RED BLOOD COUNT 3.46 10^6/ul (4.70-6.10)
[2017-05-01 05:28] LABS: AMYLASE 35 U/L (11-123); LIPASE 27 U/L (23-300)
[2017-05-01 05:34] LABS: INR 1.37; PROTIME 17.1 Sec (11.9-14.9); PT RATIO 1.3
[2017-05-01 05:35] LABS: ALANINE AMINOTRANSFERASE 41 IU/L (13-69); ALBUMIN 3.1 g/dl (3.3-4.9); ALBUMIN/GLOBULIN RATIO 0.81; ALKALINE PHOSPHATASE 105 IU/L (42-121); ANION GAP 17 (8-16); ASPARTATE AMINO TRANSFERASE 18 IU/L (15-46); BILIRUBIN,INDIRECT 0.5 mg/dl (0-1.1); BILIRUBIN,TOTAL 0.5 mg/dl (0.2-1.3); BLOOD UREA NITROGEN 3 mg/dl (7-20); CARBON DIOXIDE 25 mmol/L (21-31); CHLORIDE 98 mmol/L (97-110); CREATININE 0.54 mg/dl (0.61-1.24); GLUCOSE 87 mg/dl (70-220); MAGNESIUM 1.9 mg/dl (1.7-2.5); PARTIAL THROMBOPLASTIN TIME 51.2 Sec (25.0-35.0); POTASSIUM 3.3 mmol/L (3.5-5.1); SODIUM 137 mmol/L (135-144); TOTAL PROTEIN 6.9 g/dl (6.1-8.1)
[2017-05-01] MEDS: PIPER-TAZO 3.375 GM IV (PMX) 100 ML IVPB ×4 (05:36→23:30)
[2017-05-01 05:37] LABS: B-TYPE NATRIURETIC PEPTIDE 610 PG/ML (0-125)
[2017-05-01] MEDS: FAMOTIDINE 20 MG INJ IV ×2 (08:48→20:25)
[2017-05-01] MEDS: LORAZEPAM 2 MG INJ IV ×2 (12:26→23:01)
[2017-05-01] MEDS ORDERED: POTASSIUM CHLORIDE (SR) 20 MEQ TAB PO (15:59)
[2017-05-01] MEDS: POTASSIUM CHLORIDE (SR) 20 MEQ TAB PO ×2 (17:47→21:21)
[2017-05-02] MEDS: HYDROmorphONE 1 MG/ML SYG IV ×3 (01:17→10:04)
[2017-05-02] MEDS: SOD CHLORIDE 0.9% 1,000 ML IV ×2 (04:03→10:04)
[2017-05-02 05:10] LABS: ADD MAN DIFF? NO
[2017-05-02 05:13] LABS: BASOPHILS % 0.5 % (0.0-2.0); EOSINOPHILS # 0.2 10^3/ul (0.0-0.5); HEMATOCRIT 30.6 % (42.0-52.0); HEMOGLOBIN 9.7 g/dl (14.0-18.0); LYMPHOCYTES # 2.1 10^3/ul (0.8-2.9); LYMPHOCYTES % 34.9 % (18.0-55.0); MEAN CORPUSCULAR HEMOGLOBIN 26.6 pg (29.0-33.0); MEAN CORPUSCULAR HGB CONC 31.7 g/dl (32.0-37.0); MEAN CORPUSCULAR VOLUME 83.8 fl (72.0-104.0); MEAN PLATELET VOLUME 10.5 fl (7.4-10.4); MONOCYTE # 0.7 10^3/ul (0.3-0.9); MONOCYTES % 11.1 % (0.0-13.0); NEUTROPHILS % 50.2 % (30.0-74.0); PLATELET COUNT 291 10^3/UL (140-415); RED BLOOD COUNT 3.65 10^6/ul (4.70-6.10)
[2017-05-02 05:41] LABS: ALANINE AMINOTRANSFERASE 53 IU/L (13-69); ALBUMIN 3.2 g/dl (3.3-4.9); ALKALINE PHOSPHATASE 108 IU/L (42-121); ANION GAP 13 (8-16); ASPARTATE AMINO TRANSFERASE 39 IU/L (15-46); BILIRUBIN,INDIRECT 0.3 mg/dl (0-1.1); BILIRUBIN,TOTAL 0.3 mg/dl (0.2-1.3); CALCIUM 9.4 mg/dl (8.4-10.2); CARBON DIOXIDE 29 mmol/L (21-31); CHLORIDE 101 mmol/L (97-110); CREATININE 0.54 mg/dl (0.61-1.24); GLUCOSE 101 mg/dl (70-220); POTASSIUM 4.3 mmol/L (3.5-5.1); SODIUM 139 mmol/L (135-144); TOTAL PROTEIN 7.2 g/dl (6.1-8.1)
[2017-05-02 05:55] LABS: BLOOD UREA NITROGEN < 2 mg/dl (7-20)
[2017-05-02] MEDS: PIPER-TAZO 3.375 GM IV (PMX) 100 ML IVPB ×4 (06:02→23:39)
[2017-05-02] MEDS: FAMOTIDINE 20 MG INJ IV (08:23)
[2017-05-02] MEDS: LORAZEPAM 2 MG INJ IV ×2 (08:23→15:12)
[2017-05-02] MEDS: morphine 2 MG INJ IV ×3 (13:34→23:39)
[2017-05-02] MEDS: FAMOTIDINE 20 MG TAB PO (21:01)
[2017-05-03] MEDS: LORAZEPAM 2 MG INJ IV ×4 (01:57→22:16)
[2017-05-03] MEDS: PIPER-TAZO 3.375 GM IV (PMX) 100 ML IVPB ×3 (06:01→17:04)
[2017-05-03] MEDS: morphine 2 MG INJ IV ×2 (06:02→13:58)
[2017-05-03 09:22] LABS: ADD MAN DIFF? NO
[2017-05-03 09:29] LABS: WHITE BLOOD COUNT 5.5 10^3/ul (4.8-10.8)
[2017-05-03 09:29] LABS: BASOPHILS % 0.2 % (0.0-2.0); EOSINOPHILS # 0.2 10^3/ul (0.0-0.5); EOSINOPHILS % 3.8 % (0.0-7.0); HEMATOCRIT 30.9 % (42.0-52.0); HEMOGLOBIN 9.7 g/dl (14.0-18.0); LYMPHOCYTES # 1.9 10^3/ul (0.8-2.9); LYMPHOCYTES % 34.5 % (18.0-55.0); MEAN CORPUSCULAR HGB CONC 31.4 g/dl (32.0-37.0); MEAN CORPUSCULAR VOLUME 82.8 fl (72.0-104.0); MEAN PLATELET VOLUME 12.2 fl (7.4-10.4); MONOCYTE # 0.6 10^3/ul (0.3-0.9); MONOCYTES % 11.4 % (0.0-13.0); NEUTROPHIL # 2.7 10^3/ul (1.6-7.5); NEUTROPHILS % 49.6 % (30.0-74.0); PLATELET COUNT 244 10^3/UL (140-415); POSITIVE DIFF @See below; RED BLOOD COUNT 3.73 10^6/ul (4.70-6.10); RED CELL DISTRIBUTION WIDTH 15.7 % (11.5-14.5)
[2017-05-03 09:46] LABS: PROTIME 15.4 Sec (11.9-14.9); PT RATIO 1.2
[2017-05-03 09:47] LABS: PARTIAL THROMBOPLASTIN TIME 38.7 Sec (25.0-35.0)
[2017-05-03 09:55] LABS: ALANINE AMINOTRANSFERASE 57 IU/L (13-69); ALBUMIN 3.2 g/dl (3.3-4.9); ALBUMIN/GLOBULIN RATIO 0.86; ALKALINE PHOSPHATASE 99 IU/L (42-121); ANION GAP 15 (8-16); ASPARTATE AMINO TRANSFERASE 34 IU/L (15-46); BILIRUBIN,INDIRECT 0.3 mg/dl (0-1.1); BILIRUBIN,TOTAL 0.3 mg/dl (0.2-1.3); CALCIUM 9.6 mg/dl (8.4-10.2); CARBON DIOXIDE 28 mmol/L (21-31); CHLORIDE 99 mmol/L (97-110); GLUCOSE 103 mg/dl (70-220); POTASSIUM 4.2 mmol/L (3.5-5.1); SODIUM 138 mmol/L (135-144); TOTAL PROTEIN 6.9 g/dl (6.1-8.1)
[2017-05-03 09:57] LABS: BLOOD UREA NITROGEN < 2 mg/dl (7-20)
[2017-05-03 10:10] LABS: PHOSPHORUS 4.5 mg/dl (2.5-4.9)
[2017-05-03 10:10] LABS: CALCIUM 9.2 mg/dl (8.4-10.2)
[2017-05-03 10:18] LABS: B-TYPE NATRIURETIC PEPTIDE 94 PG/ML (0-125)
[2017-05-03] MEDS: FAMOTIDINE 20 MG TAB PO (20:23)
[2017-05-03] MEDS: morphine LIQ (10 MG/5 ML) CUP PO (20:24)
[2017-05-04] MEDS: morphine LIQ (10 MG/5 ML) CUP PO (00:16)
[2017-05-04] MEDS: PIPER-TAZO 3.375 GM IV (PMX) 100 ML IVPB ×4 (00:16→18:05)
[2017-05-04] MEDS: KETOROLAC 30 MG INJ IV (02:16)
[2017-05-04] MEDS: LORAZEPAM 2 MG INJ IV ×2 (05:30→13:19)
[2017-05-04 06:23] LABS: ADD MAN DIFF? NO
[2017-05-04 06:39] LABS: BASOPHILS % 0.3 % (0.0-2.0); EOSINOPHILS # 0.2 10^3/ul (0.0-0.5); EOSINOPHILS % 3.4 % (0.0-7.0); HEMATOCRIT 31.5 % (42.0-52.0); HEMOGLOBIN 9.8 g/dl (14.0-18.0); LYMPHOCYTES # 2.5 10^3/ul (0.8-2.9); MEAN CORPUSCULAR HGB CONC 31.1 g/dl (32.0-37.0); MEAN CORPUSCULAR VOLUME 83.6 fl (72.0-104.0); MEAN PLATELET VOLUME 10.4 fl (7.4-10.4); MONOCYTE # 0.7 10^3/ul (0.3-0.9); MONOCYTES % 11.3 % (0.0-13.0); NEUTROPHIL # 2.5 10^3/ul (1.6-7.5); NEUTROPHILS % 42.5 % (30.0-74.0); PLATELET COUNT 302 10^3/UL (140-415); RED BLOOD COUNT 3.77 10^6/ul (4.70-6.10); RED CELL DISTRIBUTION WIDTH 15.3 % (11.5-14.5)
[2017-05-04 06:39] LABS: WHITE BLOOD COUNT 5.8 10^3/ul (4.8-10.8)
[2017-05-04 06:57] LABS: ALANINE AMINOTRANSFERASE 51 IU/L (13-69); ALBUMIN 3.3 g/dl (3.3-4.9); ALBUMIN/GLOBULIN RATIO 0.82; ALKALINE PHOSPHATASE 100 IU/L (42-121); ANION GAP 15 (8-16); ASPARTATE AMINO TRANSFERASE 38 IU/L (15-46); BILIRUBIN,INDIRECT 0.2 mg/dl (0-1.1); BILIRUBIN,TOTAL 0.2 mg/dl (0.2-1.3); CALCIUM 9.6 mg/dl (8.4-10.2); CARBON DIOXIDE 29 mmol/L (21-31); CHLORIDE 101 mmol/L (97-110); CREATININE 0.55 mg/dl (0.61-1.24); GLUCOSE 95 mg/dl (70-220); POTASSIUM 3.3 mmol/L (3.5-5.1); SODIUM 142 mmol/L (135-144); TOTAL PROTEIN 7.3 g/dl (6.1-8.1)
[2017-05-04 06:59] LABS: BLOOD UREA NITROGEN < 2 mg/dl (7-20)
[2017-05-04] MEDS: HYDROmorphONE 2 MG TAB PO ×2 (08:04→11:57)
[2017-05-04] MEDS: ONDANSETRON 4 MG INJ IV ×2 (08:04→14:04)
[2017-05-04] MEDS: HYDROmorphONE 1 MG/ML SYG IV ×2 (15:21→22:16)
[2017-05-04] MEDS ORDERED: ACET/BUTAL/CAFF TAB PO (17:30)
[2017-05-04] MEDS: FAMOTIDINE 20 MG TAB PO (20:29)
[2017-05-04] MEDS: CHLORPROMAZINE 10 MG TAB PO (20:29)
[2017-05-05] MEDS: PIPER-TAZO 3.375 GM IV (PMX) 100 ML IVPB ×5 (00:28→23:28)
[2017-05-05] MEDS: HYDROmorphONE 1 MG/ML SYG IV (01:28)
[2017-05-05] MEDS ORDERED: SOD CHLORIDE 0.9% 500 ML IV (03:00)
[2017-05-05] MEDS: ACETAMINOPHEN 325 MG TAB PO (03:02)
[2017-05-05 03:12] LABS: ADD MAN DIFF? NO
[2017-05-05 03:23] LABS: BASOPHILS % 0.1 % (0.0-2.0); EOSINOPHILS # 0.1 10^3/ul (0.0-0.5); EOSINOPHILS % 0.5 % (0.0-7.0); HEMATOCRIT 30.7 % (42.0-52.0); HEMOGLOBIN 9.7 g/dl (14.0-18.0); LYMPHOCYTES # 1.7 10^3/ul (0.8-2.9); LYMPHOCYTES % 11.6 % (18.0-55.0); MEAN CORPUSCULAR HEMOGLOBIN 26.2 pg (29.0-33.0); MEAN CORPUSCULAR HGB CONC 31.6 g/dl (32.0-37.0); MEAN PLATELET VOLUME 10.2 fl (7.4-10.4); MONOCYTE # 1.1 10^3/ul (0.3-0.9); MONOCYTES % 7.4 % (0.0-13.0); NEUTROPHIL # 11.7 10^3/ul (1.6-7.5); NEUTROPHILS % 79.8 % (30.0-74.0); PLATELET COUNT 321 10^3/UL (140-415)
[2017-05-05 03:23] LABS: WHITE BLOOD COUNT 14.7 10^3/ul (4.8-10.8)
[2017-05-05] MEDS: SOD CHLORIDE 0.9% 500 ML IV ×2 (03:55→05:29)
[2017-05-05] MEDS: CHLORPROMAZINE 10 MG TAB PO (05:00)
[2017-05-05] MEDS: KETOROLAC 30 MG INJ IV ×3 (06:06→23:29)
[2017-05-05 07:17] LABS: ANION GAP 14 (8-16); BLOOD UREA NITROGEN 3 mg/dl (7-20); CALCIUM 8.5 mg/dl (8.4-10.2); CARBON DIOXIDE 26 mmol/L (21-31); CHLORIDE 104 mmol/L (97-110); CREATININE 0.63 mg/dl (0.61-1.24); GLUCOSE 128 mg/dl (70-220); POTASSIUM 3.4 mmol/L (3.5-5.1); SODIUM 141 mmol/L (135-144)
[2017-05-05] MEDS: SOD CHLORIDE 0.9% 1,000 ML IV ×3 (07:26→23:28)
[2017-05-05] MEDS: ACETAMINOPHEN 1000MG/100ML IV 100 ML IVPB ×3 (12:16→21:54)
[2017-05-05] MEDS: LORAZEPAM 2 MG INJ IV (20:05)
[2017-05-05] MEDS: FAMOTIDINE 20 MG TAB PO (20:05)
[2017-05-06] MEDS: SOD CHLORIDE 0.9% 1,000 ML IV ×3 (01:00→21:00)
[2017-05-06] MEDS: LORAZEPAM 2 MG INJ IV ×3 (01:36→22:20)
[2017-05-06] MEDS: ONDANSETRON 4 MG INJ IV ×3 (01:36→18:50)
[2017-05-06] MEDS: ACETAMINOPHEN 1000MG/100ML IV 100 ML IVPB ×4 (04:20→22:18)
[2017-05-06] MEDS: PIPER-TAZO 3.375 GM IV (PMX) 100 ML IVPB ×3 (05:45→18:09)
[2017-05-06] MEDS: KETOROLAC 30 MG INJ IV (05:46)
[2017-05-06] MEDS ORDERED: POTASSIUM CHLORIDE (SR) 20 MEQ TAB PO (11:00)
[2017-05-06 11:10] LABS: ADD MAN DIFF? NO
[2017-05-06 11:12] LABS: BASOPHILS % 0.2 % (0.0-2.0); EOSINOPHILS # 0.1 10^3/ul (0.0-0.5); EOSINOPHILS % 0.9 % (0.0-7.0); HEMATOCRIT 31.1 % (42.0-52.0); HEMOGLOBIN 9.8 g/dl (14.0-18.0); LYMPHOCYTES # 1.9 10^3/ul (0.8-2.9); LYMPHOCYTES % 15.7 % (18.0-55.0); MEAN CORPUSCULAR HEMOGLOBIN 26.2 pg (29.0-33.0); MEAN CORPUSCULAR HGB CONC 31.5 g/dl (32.0-37.0); MEAN CORPUSCULAR VOLUME 83.2 fl (72.0-104.0); MEAN PLATELET VOLUME 10.3 fl (7.4-10.4); MONOCYTE # 0.8 10^3/ul (0.3-0.9); MONOCYTES % 6.4 % (0.0-13.0); NEUTROPHIL # 9.1 10^3/ul (1.6-7.5); NEUTROPHILS % 76.3 % (30.0-74.0); PLATELET COUNT 319 10^3/UL (140-415); RED BLOOD COUNT 3.74 10^6/ul (4.70-6.10); RED CELL DISTRIBUTION WIDTH 15.8 % (11.5-14.5)
[2017-05-06 11:35] LABS: ALANINE AMINOTRANSFERASE 41 IU/L (13-69); ALBUMIN 3.3 g/dl (3.3-4.9); ALBUMIN/GLOBULIN RATIO 0.94; ALKALINE PHOSPHATASE 99 IU/L (42-121); ANION GAP 13 (8-16); ASPARTATE AMINO TRANSFERASE 22 IU/L (15-46); BILIRUBIN,INDIRECT 0.3 mg/dl (0-1.1); BILIRUBIN,TOTAL 0.3 mg/dl (0.2-1.3); BLOOD UREA NITROGEN < 2 mg/dl (7-20); CALCIUM 8.6 mg/dl (8.4-10.2); CARBON DIOXIDE 24 mmol/L (21-31); CHLORIDE 105 mmol/L (97-110); CREATININE 0.56 mg/dl (0.61-1.24); GLUCOSE 97 mg/dl (70-220); MAGNESIUM 1.8 mg/dl (1.7-2.5); POTASSIUM 3.7 mmol/L (3.5-5.1); SODIUM 138 mmol/L (135-144); TOTAL PROTEIN 6.8 g/dl (6.1-8.1)
[2017-05-06] MEDS: POTASSIUM CHLORIDE 40 MEQ in SOD CHLORIDE 0.9% 250 ML IV (13:17)
[2017-05-06] MEDS: HYDROmorphONE 0.5 MG/0.5 ML SYG IV ×4 (14:58→22:19)
[2017-05-06] MEDS: FAMOTIDINE 20 MG TAB PO (20:12)
[2017-05-06] MEDS: METOCLOPRAMIDE 10 MG INJ IV (20:12)
[2017-05-07] MEDS: PIPER-TAZO 3.375 GM IV (PMX) 100 ML IVPB ×2 (00:35→06:23)
[2017-05-07] MEDS: HYDROmorphONE 0.5 MG/0.5 ML SYG IV ×3 (00:35→23:10)
[2017-05-07] MEDS: ONDANSETRON 4 MG INJ IV ×2 (00:35→12:11)
[2017-05-07] MEDS: ACETAMINOPHEN 1000MG/100ML IV 100 ML IVPB ×4 (05:40→21:40)
[2017-05-07] MEDS: SOD CHLORIDE 0.9% 1,000 ML IV ×2 (07:00→17:00)
[2017-05-07] MEDS ORDERED: ESMOLOL 100 MG INJ (07:00)
[2017-05-07] MEDS: BUPIVACAINE 0.25%/EPI (SDV) 30 ML INJ INJ (07:25)
[2017-05-07] MEDS ORDERED: MIDAZOLAM 1 MG/ML 2 ML INJ (07:38)
[2017-05-07] MEDS ORDERED: ROCURONIUM 50 MG INJ ×2 (07:38→09:21)
[2017-05-07] MEDS ORDERED: PROPOFOL 20 ML (07:38)
[2017-05-07] MEDS ORDERED: ROPIVACAINE 0.2% 20 ML VIAL (07:38)
[2017-05-07] MEDS ORDERED: morphine SULFATE/PF (10 MG/10 ML) INJ (07:38)
[2017-05-07] MEDS ORDERED: POTASSIUM CHLORIDE 50 ML (08:36)
[2017-05-07] MEDS ORDERED: DEXAMETHASONE 4 MG/ML 1 ML INJ (09:21)
[2017-05-07] MEDS ORDERED: METOCLOPRAMIDE 10 MG INJ (09:21)
[2017-05-07] MEDS ORDERED: ALBUMIN HUMAN 25% 100 ML (09:21)
[2017-05-07] MEDS ORDERED: ONDANSETRON 4 MG INJ (09:21)
[2017-05-07] MEDS ORDERED: ACETAMINOPHEN 1000MG/100ML IV 100 ML (09:21)
[2017-05-07] MEDS ORDERED: SUGAMMADEX SODIUM 200 MG/2 ML VIAL IV (11:23)
[2017-05-07] MEDS ORDERED: HYDROmorphONE 0.5 MG/0.5 ML SYG IV ×3 (11:30→12:00)
[2017-05-07] MEDS ORDERED: NALBUPHINE HCL (10 MG/1 ML) INJ IV (11:30)
[2017-05-07] MEDS ORDERED: HYDROmorphONE (0.2 MG/ML) 10ML SYG IV (11:30)
[2017-05-07] MEDS ORDERED: LABETALOL HCL 20MG INJ IV (11:30)
[2017-05-07] MEDS ORDERED: FENTAnyl 50 MCG/ML VIAL IV ×3 (11:30)
[2017-05-07] MEDS ORDERED: DIPHENHYDRAMINE 50 MG INJ IV (11:30)
[2017-05-07] MEDS ORDERED: ALBUMIN HUMAN 5% 250 ML IV (11:30)
[2017-05-07] MEDS ORDERED: EPHEDrine SULFATE 50 MG/5 ML SYG IV (11:30)
[2017-05-07] MEDS ORDERED: METOCLOPRAMIDE 10 MG INJ IV (11:30)
[2017-05-07] MEDS ORDERED: NALOXONE (0.4 MG/ML) INJ IV (11:30)
[2017-05-07] MEDS ORDERED: morphine 2 MG INJ IV ×2 (11:30)
[2017-05-07] MEDS ORDERED: HYDROmorphONE 1 MG/ML SYG IV (12:00)
[2017-05-07] MEDS ORDERED: HYDROCODONE/APAP (5/325) TAB PO ×2 (12:00)
[2017-05-07] MEDS ORDERED: BISACODYL 10 MG SUPP PR (12:00)
[2017-05-07] MEDS ORDERED: DOCUSATE SODIUM 100 MG CAP PO (12:00)
[2017-05-07] MEDS ORDERED: NA PHOSPHATE/BIPHOS 133 ML ENEMA PR (12:00)
[2017-05-07] MEDS: MEPERIDINE 25 MG INJ IV (12:09)
[2017-05-07] MEDS: HYDROmorphONE (0.2 MG/ML) 10ML SYG IV ×4 (12:19→12:42)
[2017-05-07] MEDS: DIPHENHYDRAMINE 50 MG INJ IV (12:24)
[2017-05-07] MEDS: PIPER-TAZO 3.375 GM IV (PMX) 50 ML IVPB ×2 (12:48→17:39)
[2017-05-07] MEDS: D5W-0.45 NACL + KCL 20 MEQ 1,000 ML IV ×2 (16:08→20:16)
[2017-05-07] MEDS: HYDROmorphONE 1 MG/ML SYG IV (16:09)
[2017-05-08] MEDS: PIPER-TAZO 3.375 GM IV (PMX) 50 ML IVPB ×3 (00:22→12:50)
[2017-05-08] MEDS: LORAZEPAM 2 MG INJ IV ×2 (00:22→23:42)
[2017-05-08] MEDS: HYDROmorphONE 0.5 MG/0.5 ML SYG IV ×8 (01:57→22:56)
[2017-05-08] MEDS: ACETAMINOPHEN 1000MG/100ML IV 100 ML IVPB ×4 (04:43→21:13)
[2017-05-08] MEDS: D5W-0.45 NACL + KCL 20 MEQ 1,000 ML IV ×3 (04:43→17:50)
[2017-05-08] MEDS: PANTOPRAZOLE 40 MG INJ IV (05:57)
[2017-05-08 06:11] LABS: ADD MAN DIFF? NO
[2017-05-08 06:14] LABS: BASOPHILS % 0.1 % (0.0-2.0); EOSINOPHILS % 0.1 % (0.0-7.0); HEMATOCRIT 31.9 % (42.0-52.0); LYMPHOCYTES # 2.2 10^3/ul (0.8-2.9); LYMPHOCYTES % 14.2 % (18.0-55.0); MEAN CORPUSCULAR HGB CONC 31.3 g/dl (32.0-37.0); MEAN CORPUSCULAR VOLUME 83.1 fl (72.0-104.0); MEAN PLATELET VOLUME 10.5 fl (7.4-10.4); MONOCYTE # 1.2 10^3/ul (0.3-0.9); MONOCYTES % 8.1 % (0.0-13.0); NEUTROPHIL # 11.8 10^3/ul (1.6-7.5); PLATELET COUNT 387 10^3/UL (140-415); RED BLOOD COUNT 3.84 10^6/ul (4.70-6.10)
[2017-05-08 06:14] LABS: WHITE BLOOD COUNT 15.3 10^3/ul (4.8-10.8)
[2017-05-08 06:48] LABS: MAGNESIUM 1.9 mg/dl (1.7-2.5)
[2017-05-08 06:48] LABS: CALCIUM 8.9 mg/dl (8.4-10.2)
[2017-05-08 06:54] LABS: INR 1.25; PROTIME 15.9 Sec (11.9-14.9); PT RATIO 1.2
[2017-05-08 06:55] LABS: B-TYPE NATRIURETIC PEPTIDE 289 PG/ML (0-125); PARTIAL THROMBOPLASTIN TIME 41.7 Sec (25.0-35.0)
[2017-05-08 06:59] LABS: LACTIC ACID 0.9 mmol/L (0.5-2.0)
[2017-05-08] MEDS: ONDANSETRON 4 MG INJ IV ×2 (07:56→21:13)
[2017-05-08] MEDS: METOCLOPRAMIDE 10 MG INJ IV ×2 (11:46→22:56)
[2017-05-08] MEDS ORDERED: VANCOMYCIN IV PER PHARMACY XX (12:00)
[2017-05-08] MEDS: SOD CHLORIDE 0.9% 1,000 ML IV ×2 (12:52→20:02)
[2017-05-08] MEDS: VANCOMYCIN 1.25 GM in SOD CHLORIDE 0.45% 250 ML IVPB (13:31)
[2017-05-08] MEDS: ENOXAPARIN 40 MG/0.4 ML SYG SC (13:36)
[2017-05-08] MEDS: KETOROLAC 30 MG INJ IV ×2 (15:12→21:14)
[2017-05-08] MEDS: PIPER-TAZO 3.375 GM IV (PMX) 100 ML IVPB ×2 (18:26→23:32)
[2017-05-08] MEDS: HYDROmorphONE 1 MG/ML SYG IV (19:42)
[2017-05-08] MEDS: VANCOMYCIN 750 MG in DEXTROSE 5% 150 ML IVPB (20:01)
[2017-05-09] MEDS: HYDROmorphONE 1 MG/ML SYG IV ×4 (02:51→10:46)
[2017-05-09] MEDS: ACETAMINOPHEN 1000MG/100ML IV 100 ML IVPB ×4 (03:46→22:26)
[2017-05-09] MEDS: PIPER-TAZO 3.375 GM IV (PMX) 100 ML IVPB ×3 (06:00→18:02)
[2017-05-09] MEDS: VANCOMYCIN 750 MG in DEXTROSE 5% 150 ML IVPB (06:00)
[2017-05-09] MEDS: ONDANSETRON 4 MG INJ IV (06:00)
[2017-05-09] MEDS: PANTOPRAZOLE 40 MG INJ IV (06:00)
[2017-05-09 06:34] LABS: ADD MAN DIFF? NO
[2017-05-09 06:45] LABS: WHITE BLOOD COUNT 20.5 10^3/ul (4.8-10.8)
[2017-05-09 06:45] LABS: BASOPHILS % 0.2 % (0.0-2.0); EOSINOPHILS # 0.1 10^3/ul (0.0-0.5); EOSINOPHILS % 0.5 % (0.0-7.0); HEMATOCRIT 26.4 % (42.0-52.0); HEMOGLOBIN 8.2 g/dl (14.0-18.0); LYMPHOCYTES # 1.9 10^3/ul (0.8-2.9); LYMPHOCYTES % 9.5 % (18.0-55.0); MEAN CORPUSCULAR HEMOGLOBIN 26.2 pg (29.0-33.0); MEAN CORPUSCULAR HGB CONC 31.1 g/dl (32.0-37.0); MEAN CORPUSCULAR VOLUME 84.3 fl (72.0-104.0); MEAN PLATELET VOLUME 10.6 fl (7.4-10.4); MONOCYTE # 1.2 10^3/ul (0.3-0.9); MONOCYTES % 5.8 % (0.0-13.0); NEUTROPHIL # 17.1 10^3/ul (1.6-7.5); NEUTROPHILS % 83.4 % (30.0-74.0); PLATELET COUNT 357 10^3/UL (140-415); RED BLOOD COUNT 3.13 10^6/ul (4.70-6.10); RED CELL DISTRIBUTION WIDTH 16.2 % (11.5-14.5)
[2017-05-09 07:07] LABS: ALANINE AMINOTRANSFERASE 40 IU/L (13-69); ALBUMIN 2.9 g/dl (3.3-4.9); ALBUMIN/GLOBULIN RATIO 0.82; ALKALINE PHOSPHATASE 90 IU/L (42-121); ANION GAP 10 (8-16); ASPARTATE AMINO TRANSFERASE 25 IU/L (15-46); BILIRUBIN,INDIRECT 0.3 mg/dl (0-1.1); BILIRUBIN,TOTAL 0.3 mg/dl (0.2-1.3); BLOOD UREA NITROGEN 8 mg/dl (7-20); CALCIUM 8.5 mg/dl (8.4-10.2); CARBON DIOXIDE 28 mmol/L (21-31); CHLORIDE 101 mmol/L (97-110); CREATININE 0.48 mg/dl (0.61-1.24); GLUCOSE 103 mg/dl (70-220); MAGNESIUM 1.7 mg/dl (1.7-2.5); PHOSPHORUS 2.7 mg/dl (2.5-4.9); POTASSIUM 4.1 mmol/L (3.5-5.1); SODIUM 135 mmol/L (135-144); TOTAL PROTEIN 6.4 g/dl (6.1-8.1)
[2017-05-09 07:09] LABS: INR 1.34; PROTIME 16.8 Sec (11.9-14.9); PT RATIO 1.3
[2017-05-09 07:10] LABS: PARTIAL THROMBOPLASTIN TIME 42.2 Sec (25.0-35.0)
[2017-05-09 07:12] LABS: B-TYPE NATRIURETIC PEPTIDE 92 PG/ML (0-125)
[2017-05-09] MEDS: SOD CHLORIDE 0.9% 1,000 ML IV ×2 (08:29→14:40)
[2017-05-09] MEDS: ENOXAPARIN 40 MG/0.4 ML SYG SC (09:00)
[2017-05-09] MEDS: LORAZEPAM 2 MG INJ IV ×2 (12:06→18:26)
[2017-05-09] MEDS: D5W-0.45 NACL + KCL 20 MEQ 1,000 ML IV ×2 (12:10→21:10)
[2017-05-09 13:13] LABS: ADD MAN DIFF? NO
[2017-05-09 13:39] LABS: WHITE BLOOD COUNT 15.8 10^3/ul (4.8-10.8)
[2017-05-09 13:39] LABS: BASOPHILS % 0.2 % (0.0-2.0); EOSINOPHILS # 0.1 10^3/ul (0.0-0.5); EOSINOPHILS % 0.6 % (0.0-7.0); HEMATOCRIT 22.7 % (42.0-52.0); HEMOGLOBIN 7.1 g/dl (14.0-18.0); LYMPHOCYTES % 12.3 % (18.0-55.0); MEAN CORPUSCULAR HEMOGLOBIN 26.2 pg (29.0-33.0); MEAN CORPUSCULAR HGB CONC 31.3 g/dl (32.0-37.0); MEAN CORPUSCULAR VOLUME 83.8 fl (72.0-104.0); MEAN PLATELET VOLUME 10.4 fl (7.4-10.4); MONOCYTES % 6.4 % (0.0-13.0); NEUTROPHIL # 12.6 10^3/ul (1.6-7.5); PLATELET COUNT 296 10^3/UL (140-415); RED BLOOD COUNT 2.71 10^6/ul (4.70-6.10); RED CELL DISTRIBUTION WIDTH 16.3 % (11.5-14.5)
[2017-05-09 13:45] LABS: VANCOMYCIN,TROUGH 6.6 ug/ml (10.0-20.0)
[2017-05-09] MEDS: HYDROmorphONE 0.5 MG/0.5 ML SYG IV ×4 (14:46→22:26)
[2017-05-09] MEDS: VANCOMYCIN 1 GM 250 ML IVPB ×2 (14:47→23:12)
[2017-05-09 20:37] LABS: ADD MAN DIFF? NO
[2017-05-09 20:38] LABS: BASOPHILS % 0.3 % (0.0-2.0); EOSINOPHILS # 0.2 10^3/ul (0.0-0.5); EOSINOPHILS % 1.4 % (0.0-7.0); HEMATOCRIT 23.1 % (42.0-52.0); HEMOGLOBIN 7.1 g/dl (14.0-18.0); LYMPHOCYTES # 2.7 10^3/ul (0.8-2.9); MEAN CORPUSCULAR HEMOGLOBIN 25.9 pg (29.0-33.0); MEAN CORPUSCULAR HGB CONC 30.7 g/dl (32.0-37.0); MEAN CORPUSCULAR VOLUME 84.3 fl (72.0-104.0); MEAN PLATELET VOLUME 10.4 fl (7.4-10.4); MONOCYTES % 6.4 % (0.0-13.0); NEUTROPHILS % 73.4 % (30.0-74.0); PLATELET COUNT 321 10^3/UL (140-415); RED BLOOD COUNT 2.74 10^6/ul (4.70-6.10); RED CELL DISTRIBUTION WIDTH 16.4 % (11.5-14.5)
[2017-05-10] MEDS: PIPER-TAZO 3.375 GM IV (PMX) 100 ML IVPB ×5 (00:20→23:51)
[2017-05-10] MEDS: HYDROmorphONE 0.5 MG/0.5 ML SYG IV ×10 (00:22→22:51)
[2017-05-10] MEDS: SOD CHLORIDE 0.9% 1,000 ML IV ×2 (03:48→17:20)
[2017-05-10] MEDS: ACETAMINOPHEN 1000MG/100ML IV 100 ML IVPB ×4 (04:36→21:36)
[2017-05-10] MEDS: ONDANSETRON 4 MG INJ IV ×3 (04:36→21:41)
[2017-05-10] MEDS: VANCOMYCIN 1 GM 250 ML IVPB ×3 (05:28→21:37)
[2017-05-10] MEDS: PANTOPRAZOLE 40 MG INJ IV (05:28)
[2017-05-10 05:52] LABS: ADD MAN DIFF? NO
[2017-05-10 05:58] LABS: ABNORMAL IP MESSAGE 1; BASOPHILS % 0.2 % (0.0-2.0); EOSINOPHILS # 0.3 10^3/ul (0.0-0.5); EOSINOPHILS % 2.1 % (0.0-7.0); HEMATOCRIT 21.1 % (42.0-52.0); LYMPHOCYTES # 1.7 10^3/ul (0.8-2.9); MEAN CORPUSCULAR HGB CONC 31.3 g/dl (32.0-37.0); MEAN CORPUSCULAR VOLUME 83.1 fl (72.0-104.0); MEAN PLATELET VOLUME 10.1 fl (7.4-10.4); MONOCYTE # 0.9 10^3/ul (0.3-0.9); MONOCYTES % 7.2 % (0.0-13.0); NEUTROPHIL # 9.2 10^3/ul (1.6-7.5); PLATELET COUNT 316 10^3/UL (140-415); POSITIVE DIFF @See below; RED BLOOD COUNT 2.54 10^6/ul (4.70-6.10); RED CELL DISTRIBUTION WIDTH 16.3 % (11.5-14.5)
[2017-05-10 05:58] LABS: WHITE BLOOD COUNT 12.1 10^3/ul (4.8-10.8)
[2017-05-10 06:16] LABS: ALANINE AMINOTRANSFERASE 33 IU/L (13-69); ALBUMIN 2.8 g/dl (3.3-4.9); ALKALINE PHOSPHATASE 81 IU/L (42-121); ANION GAP 12 (8-16); ASPARTATE AMINO TRANSFERASE 17 IU/L (15-46); BILIRUBIN,INDIRECT 0.2 mg/dl (0-1.1); BILIRUBIN,TOTAL 0.2 mg/dl (0.2-1.3); BLOOD UREA NITROGEN 6 mg/dl (7-20); CALCIUM 8.5 mg/dl (8.4-10.2); CARBON DIOXIDE 27 mmol/L (21-31); CHLORIDE 99 mmol/L (97-110); CREATININE 0.47 mg/dl (0.61-1.24); GLUCOSE 114 mg/dl (70-220); INR 1.37; POTASSIUM 3.7 mmol/L (3.5-5.1); PROTIME 17.1 Sec (11.9-14.9); PT RATIO 1.3; SODIUM 134 mmol/L (135-144); TOTAL PROTEIN 6.2 g/dl (6.1-8.1)
[2017-05-10 06:27] LABS: HEMOGLOBIN 6.6 g/dl (14.0-18.0)
[2017-05-10 06:28] LABS: PATH REVIEW? YES
[2017-05-10] MEDS: D5W-0.45 NACL + KCL 20 MEQ 1,000 ML IV ×2 (06:33→15:30)
[2017-05-10] MEDS: METOCLOPRAMIDE 10 MG INJ IV ×4 (10:10→23:51)
[2017-05-10] MEDS: PHYTONADIONE 2 MG in DEXTROSE 5% 50 ML IVPB (10:43)
[2017-05-10 10:53] LABS: ANISOCYTOSIS 1+ (0-0); EOSINOPHILS % (M) 3 % (0-7); GIANT THROMBO% (M) 2 % (0-0); HYPOCHROMASIA 1+ (0-0); LYMPHOCYTES #M 1.6 10^3/ul (0.8-2.9); LYMPHOCYTES % (M) 14 % (18-55); MICROCYTOSIS 1+ (0-0); MONOCYTE #M 0.8 10^3/ul (0.3-0.9); MONOCYTES % (M) 7 % (0-13); PLATELET ESTIMATE NORMAL; POLYCHROMASIA 3+ (0-0); SEGMENTED NEUTROPHILS (M) % 76 % (30-74); SMUDGE%M 2 % (0-0)
[2017-05-10 11:44] LABS: IMMEDIATE SPIN CROSSMATCH 1 3
[2017-05-10] MEDS: KETOROLAC 30 MG INJ IV (14:13)
[2017-05-10 16:23] LABS: PATH REVIEW CH
[2017-05-10] MEDS: LORAZEPAM 2 MG INJ IV (16:54)
[2017-05-10 17:23] LABS: HEMATOCRIT 24.5 % (42.0-52.0); HEMOGLOBIN 7.8 g/dl (14.0-18.0)
[2017-05-10] MEDS ORDERED: NA PHOSPHATE/BIPHOS 133 ML ENEMA PR (19:30)
[2017-05-10] MEDS ORDERED: BISACODYL 10 MG SUPP PR (19:30)
[2017-05-10] MEDS: DOCUSATE SODIUM 100 MG CAP PO (21:38)
[2017-05-10] MEDS: BISACODYL 10 MG SUPP PR (23:51)
[2017-05-11] MEDS: LORAZEPAM 2 MG INJ IV ×3 (00:01→19:31)
[2017-05-11] MEDS: HYDROmorphONE 0.5 MG/0.5 ML SYG IV ×8 (01:32→23:06)
[2017-05-11] MEDS: D5W-0.45 NACL + KCL 20 MEQ 1,000 ML IV ×3 (01:32→14:19)
[2017-05-11] MEDS: ACETAMINOPHEN 1000MG/100ML IV 100 ML IVPB ×4 (03:38→22:01)
[2017-05-11] MEDS: PIPER-TAZO 3.375 GM IV (PMX) 100 ML IVPB ×3 (05:28→19:08)
[2017-05-11] MEDS: VANCOMYCIN 1 GM 250 ML IVPB ×3 (05:29→22:44)
[2017-05-11] MEDS: PANTOPRAZOLE 40 MG INJ IV (05:30)
[2017-05-11] MEDS: METOCLOPRAMIDE 10 MG INJ IV ×3 (05:30→19:08)
[2017-05-11] MEDS: NA PHOSPHATE/BIPHOS 133 ML ENEMA PR (06:10)
[2017-05-11 06:13] LABS: ADD MAN DIFF? NO
[2017-05-11 06:17] LABS: BASOPHILS % 0.4 % (0.0-2.0); EOSINOPHILS # 0.5 10^3/ul (0.0-0.5); EOSINOPHILS % 5.4 % (0.0-7.0); HEMATOCRIT 22.8 % (42.0-52.0); HEMOGLOBIN 7.3 g/dl (14.0-18.0); LYMPHOCYTES # 2.2 10^3/ul (0.8-2.9); LYMPHOCYTES % 24.3 % (18.0-55.0); MEAN CORPUSCULAR HEMOGLOBIN 26.1 pg (29.0-33.0); MEAN CORPUSCULAR VOLUME 81.4 fl (72.0-104.0); MONOCYTE # 0.8 10^3/ul (0.3-0.9); MONOCYTES % 9.1 % (0.0-13.0); NEUTROPHIL # 5.4 10^3/ul (1.6-7.5); NEUTROPHILS % 60.2 % (30.0-74.0); PLATELET COUNT 351 10^3/UL (140-415); RED CELL DISTRIBUTION WIDTH 16.8 % (11.5-14.5)
[2017-05-11] MEDS: SOD CHLORIDE 0.9% 1,000 ML IV (06:21)
[2017-05-11 06:37] LABS: LACTIC ACID 0.7 mmol/L (0.5-2.0)
[2017-05-11 06:44] LABS: INR 1.16; PT RATIO 1.2
[2017-05-11 06:45] LABS: PARTIAL THROMBOPLASTIN TIME 47.3 Sec (25.0-35.0)
[2017-05-11 07:10] LABS: B-TYPE NATRIURETIC PEPTIDE 400 PG/ML (0-125)
[2017-05-11 07:14] LABS: POTASSIUM 3.8 mmol/L (3.5-5.1)
[2017-05-11 07:17] LABS: ALANINE AMINOTRANSFERASE 28 IU/L (13-69); ALBUMIN 2.7 g/dl (3.3-4.9); ALKALINE PHOSPHATASE 76 IU/L (42-121); ANION GAP 12 (8-16); ASPARTATE AMINO TRANSFERASE 16 IU/L (15-46); BILIRUBIN,INDIRECT 0.2 mg/dl (0-1.1); BILIRUBIN,TOTAL 0.2 mg/dl (0.2-1.3); BLOOD UREA NITROGEN 3 mg/dl (7-20); CALCIUM 8.5 mg/dl (8.4-10.2); CARBON DIOXIDE 26 mmol/L (21-31); CHLORIDE 103 mmol/L (97-110); CREATININE 0.44 mg/dl (0.61-1.24); GLUCOSE 101 mg/dl (70-220); MAGNESIUM 1.9 mg/dl (1.7-2.5); PHOSPHORUS 3.2 mg/dl (2.5-4.9); SODIUM 137 mmol/L (135-144); TOTAL PROTEIN 5.7 g/dl (6.1-8.1)
[2017-05-11] MEDS: DOCUSATE SODIUM 100 MG CAP PO ×2 (08:57→21:00)
[2017-05-11] MEDS: BISACODYL 10 MG SUPP PR ×2 (13:00)
[2017-05-11 13:58] LABS: VANCOMYCIN,TROUGH 11.3 ug/ml (10.0-20.0)
[2017-05-11] MEDS ORDERED: DIATR MEGLU/DIATRIZOATE SODIUM 120 ML BTL (15:32)
[2017-05-11] MEDS ORDERED: DOCUSATE SODIUM 100 MG CAP PO (22:30)
[2017-05-11] MEDS: ONDANSETRON 4 MG INJ IV (22:36)
[2017-05-12] MEDS: PIPER-TAZO 3.375 GM IV (PMX) 100 ML IVPB ×4 (01:15→18:27)
[2017-05-12] MEDS: HYDROmorphONE 0.5 MG/0.5 ML SYG IV ×6 (01:15→20:32)
[2017-05-12] MEDS: METOCLOPRAMIDE 10 MG INJ IV ×4 (01:15→18:26)
[2017-05-12] MEDS: ONDANSETRON 4 MG INJ IV ×3 (05:00→20:12)
[2017-05-12] MEDS: ACETAMINOPHEN 1000MG/100ML IV 100 ML IVPB ×4 (05:00→21:47)
[2017-05-12] MEDS: PANTOPRAZOLE 40 MG INJ IV (05:25)
[2017-05-12 05:37] LABS: ADD MAN DIFF? NO
[2017-05-12 05:43] LABS: WHITE BLOOD COUNT 11.3 10^3/ul (4.8-10.8)
[2017-05-12 05:43] LABS: BASOPHIL # 0.1 10^3/ul (0.0-0.1); BASOPHILS % 0.4 % (0.0-2.0); EOSINOPHILS # 0.5 10^3/ul (0.0-0.5); EOSINOPHILS % 4.1 % (0.0-7.0); HEMATOCRIT 25.9 % (42.0-52.0); HEMOGLOBIN 8.3 g/dl (14.0-18.0); LYMPHOCYTES % 26.5 % (18.0-55.0); MEAN CORPUSCULAR HEMOGLOBIN 25.9 pg (29.0-33.0); MEAN CORPUSCULAR VOLUME 80.7 fl (72.0-104.0); MEAN PLATELET VOLUME 9.7 fl (7.4-10.4); MONOCYTE # 0.9 10^3/ul (0.3-0.9); MONOCYTES % 7.7 % (0.0-13.0); NEUTROPHIL # 6.8 10^3/ul (1.6-7.5); NEUTROPHILS % 60.8 % (30.0-74.0); PLATELET COUNT 499 10^3/UL (140-415); RED BLOOD COUNT 3.21 10^6/ul (4.70-6.10)
[2017-05-12 06:01] LABS: ALANINE AMINOTRANSFERASE 32 IU/L (13-69); ALBUMIN 3.3 g/dl (3.3-4.9); ALBUMIN/GLOBULIN RATIO 0.91; ALKALINE PHOSPHATASE 93 IU/L (42-121); ANION GAP 12 (8-16); ASPARTATE AMINO TRANSFERASE 18 IU/L (15-46); BILIRUBIN,INDIRECT 0.2 mg/dl (0-1.1); BILIRUBIN,TOTAL 0.2 mg/dl (0.2-1.3); CALCIUM 9.1 mg/dl (8.4-10.2); CARBON DIOXIDE 26 mmol/L (21-31); CHLORIDE 103 mmol/L (97-110); CREATININE 0.47 mg/dl (0.61-1.24); GLUCOSE 114 mg/dl (70-220); MAGNESIUM 1.8 mg/dl (1.7-2.5); PHOSPHORUS 3.6 mg/dl (2.5-4.9); POTASSIUM 3.3 mmol/L (3.5-5.1); SODIUM 138 mmol/L (135-144); TOTAL PROTEIN 6.9 g/dl (6.1-8.1)
[2017-05-12] MEDS: VANCOMYCIN 1 GM 250 ML IVPB ×3 (06:03→22:25)
[2017-05-12 06:11] LABS: BLOOD UREA NITROGEN < 2 mg/dl (7-20)
[2017-05-12 06:17] LABS: PROTIME 14.4 Sec (11.9-14.9); PT RATIO 1.1
[2017-05-12 06:18] LABS: PARTIAL THROMBOPLASTIN TIME 44.5 Sec (25.0-35.0)
[2017-05-12] MEDS: D5W-0.45 NACL + KCL 20 MEQ 1,000 ML IV ×2 (07:30→09:39)
[2017-05-12] MEDS ORDERED: POTASSIUM CHLORIDE 50 ML IVPB (11:00)
[2017-05-12] MEDS: KCL 40 MEQ in NS 250 ML IVPB X1 IVPB (13:24)
[2017-05-12] MEDS: LORAZEPAM 2 MG INJ IV ×2 (14:10→22:25)
[2017-05-13] MEDS: METOCLOPRAMIDE 10 MG INJ IV ×4 (00:44→17:44)
[2017-05-13] MEDS: PIPER-TAZO 3.375 GM IV (PMX) 100 ML IVPB ×4 (00:44→17:45)
[2017-05-13] MEDS: HYDROmorphONE 0.5 MG/0.5 ML SYG IV ×4 (00:44→09:15)
[2017-05-13] MEDS: D5W-0.45 NACL + KCL 20 MEQ 1,000 ML IV ×3 (03:30→20:57)
[2017-05-13] MEDS: ACETAMINOPHEN 1000MG/100ML IV 100 ML IVPB ×4 (04:43→21:04)
[2017-05-13 05:20] LABS: ADD MAN DIFF? NO
[2017-05-13] MEDS: PANTOPRAZOLE 40 MG INJ IV (05:48)
[2017-05-13 05:50] LABS: INR 1.11; PROTIME 14.5 Sec (11.9-14.9); PT RATIO 1.1
[2017-05-13 06:09] LABS: WHITE BLOOD COUNT 9.8 10^3/ul (4.8-10.8)
[2017-05-13 06:10] LABS: BASOPHILS % 0.4 % (0.0-2.0); EOSINOPHILS # 0.2 10^3/ul (0.0-0.5); EOSINOPHILS % 2.5 % (0.0-7.0); HEMATOCRIT 24.4 % (42.0-52.0); HEMOGLOBIN 7.8 g/dl (14.0-18.0); LYMPHOCYTES # 2.4 10^3/ul (0.8-2.9); LYMPHOCYTES % 24.8 % (18.0-55.0); MEAN CORPUSCULAR HEMOGLOBIN 26.2 pg (29.0-33.0); MEAN CORPUSCULAR VOLUME 81.9 fl (72.0-104.0); MONOCYTE # 1.1 10^3/ul (0.3-0.9); MONOCYTES % 10.9 % (0.0-13.0); NEUTROPHIL # 5.9 10^3/ul (1.6-7.5); NEUTROPHILS % 60.8 % (30.0-74.0); PLATELET COUNT 475 10^3/UL (140-415); POSITIVE DIFF @See below; RED BLOOD COUNT 2.98 10^6/ul (4.70-6.10); RED CELL DISTRIBUTION WIDTH 17.1 % (11.5-14.5)
[2017-05-13 06:35] LABS: ALANINE AMINOTRANSFERASE 28 IU/L (13-69); ALBUMIN 3.2 g/dl (3.3-4.9); ALBUMIN/GLOBULIN RATIO 0.91; ALKALINE PHOSPHATASE 85 IU/L (42-121); ANION GAP 14 (8-16); ASPARTATE AMINO TRANSFERASE 21 IU/L (15-46); BILIRUBIN,INDIRECT 0.2 mg/dl (0-1.1); BILIRUBIN,TOTAL 0.2 mg/dl (0.2-1.3); CALCIUM 9.2 mg/dl (8.4-10.2); CARBON DIOXIDE 22 mmol/L (21-31); CHLORIDE 105 mmol/L (97-110); CREATININE 0.53 mg/dl (0.61-1.24); GLUCOSE 107 mg/dl (70-220); MAGNESIUM 1.9 mg/dl (1.7-2.5); POTASSIUM 3.7 mmol/L (3.5-5.1); SODIUM 137 mmol/L (135-144); TOTAL PROTEIN 6.7 g/dl (6.1-8.1)
[2017-05-13 06:39] LABS: BLOOD UREA NITROGEN < 2 mg/dl (7-20)
[2017-05-13] MEDS: VANCOMYCIN 1 GM 250 ML IVPB ×3 (06:49→21:53)
[2017-05-13] MEDS: ONDANSETRON 4 MG INJ IV (10:34)
[2017-05-13] MEDS: SOD CHLORIDE 0.9% 100 ML (13:06)
[2017-05-13] MEDS: IOHEXOL 300MG/ML 150 ML BTL (13:06)
[2017-05-13] MEDS: LORAZEPAM 2 MG INJ IV ×2 (13:19→21:54)
[2017-05-13] MEDS: HYDROmorphONE 2 MG TAB PO (17:46)
[2017-05-14] MEDS: PIPER-TAZO 3.375 GM IV (PMX) 100 ML IVPB ×5 (00:46→23:57)
[2017-05-14] MEDS: METOCLOPRAMIDE 10 MG INJ IV ×5 (00:47→23:58)
[2017-05-14] MEDS: HYDROmorphONE 2 MG TAB PO (01:22)
[2017-05-14] MEDS: ACETAMINOPHEN 1000MG/100ML IV 100 ML IVPB ×4 (05:37→22:16)
[2017-05-14] MEDS: PANTOPRAZOLE 40 MG INJ IV (05:45)
[2017-05-14] MEDS: LORAZEPAM 2 MG INJ IV ×3 (05:45→18:01)
[2017-05-14 06:03] LABS: ADD MAN DIFF? NO
[2017-05-14 06:06] LABS: BASOPHIL # 0.1 10^3/ul (0.0-0.1); BASOPHILS % 0.5 % (0.0-2.0); EOSINOPHILS # 0.2 10^3/ul (0.0-0.5); EOSINOPHILS % 2.1 % (0.0-7.0); HEMATOCRIT 26.3 % (42.0-52.0); HEMOGLOBIN 8.5 g/dl (14.0-18.0); LYMPHOCYTES # 2.7 10^3/ul (0.8-2.9); LYMPHOCYTES % 27.5 % (18.0-55.0); MEAN CORPUSCULAR HEMOGLOBIN 26.4 pg (29.0-33.0); MEAN CORPUSCULAR HGB CONC 32.3 g/dl (32.0-37.0); MEAN CORPUSCULAR VOLUME 81.7 fl (72.0-104.0); MEAN PLATELET VOLUME 9.3 fl (7.4-10.4); NEUTROPHIL # 5.8 10^3/ul (1.6-7.5); NEUTROPHILS % 59.3 % (30.0-74.0); PLATELET COUNT 534 10^3/UL (140-415); RED BLOOD COUNT 3.22 10^6/ul (4.70-6.10); RED CELL DISTRIBUTION WIDTH 17.5 % (11.5-14.5)
[2017-05-14 06:06] LABS: WHITE BLOOD COUNT 9.7 10^3/ul (4.8-10.8)
[2017-05-14 06:34] LABS: INR 1.08; PROTIME 14.1 Sec (11.9-14.9); PT RATIO 1.1
[2017-05-14 06:35] LABS: PARTIAL THROMBOPLASTIN TIME 38.6 Sec (25.0-35.0)
[2017-05-14] MEDS: VANCOMYCIN 1 GM 250 ML IVPB (06:38)
[2017-05-14 06:51] LABS: ALANINE AMINOTRANSFERASE 24 IU/L (13-69); ALBUMIN 3.4 g/dl (3.3-4.9); ALBUMIN/GLOBULIN RATIO 0.97; ALKALINE PHOSPHATASE 98 IU/L (42-121); ANION GAP 14 (8-16); ASPARTATE AMINO TRANSFERASE 19 IU/L (15-46); BILIRUBIN,INDIRECT 0.2 mg/dl (0-1.1); BILIRUBIN,TOTAL 0.2 mg/dl (0.2-1.3); CALCIUM 8.9 mg/dl (8.4-10.2); CARBON DIOXIDE 26 mmol/L (21-31); CHLORIDE 103 mmol/L (97-110); GLUCOSE 112 mg/dl (70-220); MAGNESIUM 1.7 mg/dl (1.7-2.5); POTASSIUM 3.4 mmol/L (3.5-5.1); SODIUM 140 mmol/L (135-144); TOTAL PROTEIN 6.9 g/dl (6.1-8.1)
[2017-05-14 07:03] LABS: BLOOD UREA NITROGEN < 2 mg/dl (7-20)
[2017-05-14] MEDS: D5W-0.45 NACL + KCL 20 MEQ 1,000 ML IV ×2 (10:17→19:30)
[2017-05-14 10:36] LABS: IRON 33 ug/dl (35-150)
[2017-05-14 10:45] LABS: % IRON SATURATION 16 % SAT (22-52); TOTAL IRON BINDING CAPACITY 205 ug/dl (241-421)
[2017-05-14 14:44] LABS: VANCOMYCIN,TROUGH 26.6 ug/ml (10.0-20.0)
[2017-05-15] MEDS: LORAZEPAM 2 MG INJ IV ×4 (00:29→22:37)
[2017-05-15] MEDS: VANCOMYCIN 1 GM 250 ML IVPB ×2 (00:32→12:19)
[2017-05-15] MEDS: HYDROmorphONE 2 MG TAB PO (04:02)
[2017-05-15] MEDS: ACETAMINOPHEN 1000MG/100ML IV 100 ML IVPB ×4 (04:31→22:00)
[2017-05-15] MEDS: PANTOPRAZOLE 40 MG INJ IV (05:54)
[2017-05-15] MEDS: METOCLOPRAMIDE 10 MG INJ IV ×3 (05:54→17:21)
[2017-05-15] MEDS: PIPER-TAZO 3.375 GM IV (PMX) 100 ML IVPB ×2 (05:54→12:19)
[2017-05-15] MEDS: D5W-0.45 NACL + KCL 20 MEQ 1,000 ML IV (05:55)
[2017-05-16] MEDS: ACETAMINOPHEN 1000MG/100ML IV 100 ML IVPB ×2 (04:00→09:08)
[2017-05-16] MEDS: LORAZEPAM 2 MG INJ IV ×2 (04:04→10:56)
[2017-05-16] MEDS: PANTOPRAZOLE (EC) 40 MG TAB PO (05:44)
[2017-05-16] MEDS: METOCLOPRAMIDE 10 MG INJ IV ×3 (05:49→10:56)
[2017-05-16 06:07] LABS: ADD MAN DIFF? NO
[2017-05-16 06:49] LABS: WHITE BLOOD COUNT 11.7 10^3/ul (4.8-10.8)
[2017-05-16 06:49] LABS: BASOPHIL # 0.1 10^3/ul (0.0-0.1); BASOPHILS % 0.7 % (0.0-2.0); EOSINOPHILS # 0.1 10^3/ul (0.0-0.5); EOSINOPHILS % 0.7 % (0.0-7.0); HEMATOCRIT 27.7 % (42.0-52.0); LYMPHOCYTES # 2.4 10^3/ul (0.8-2.9); LYMPHOCYTES % 20.8 % (18.0-55.0); MEAN CORPUSCULAR HEMOGLOBIN 26.9 pg (29.0-33.0); MEAN CORPUSCULAR HGB CONC 32.5 g/dl (32.0-37.0); MEAN CORPUSCULAR VOLUME 82.7 fl (72.0-104.0); MEAN PLATELET VOLUME 9.6 fl (7.4-10.4); MONOCYTE # 1.2 10^3/ul (0.3-0.9); MONOCYTES % 9.8 % (0.0-13.0); NEUTROPHIL # 7.9 10^3/ul (1.6-7.5); NEUTROPHILS % 67.6 % (30.0-74.0); PLATELET COUNT 467 10^3/UL (140-415); RED BLOOD COUNT 3.35 10^6/ul (4.70-6.10); RED CELL DISTRIBUTION WIDTH 18.6 % (11.5-14.5)
[2017-05-16 07:00] LABS: ANION GAP 16 (8-16); CARBON DIOXIDE 25 mmol/L (21-31); CHLORIDE 103 mmol/L (97-110); GLUCOSE 97 mg/dl (70-220); MAGNESIUM 1.8 mg/dl (1.7-2.5); POTASSIUM 3.7 mmol/L (3.5-5.1); SODIUM 140 mmol/L (135-144)
[2017-05-16 07:29] LABS: BLOOD UREA NITROGEN < 2 mg/dl (7-20)
[2017-05-16 07:42] LABS: CALCIUM 9.4 mg/dl (8.4-10.2)
== END 2017-05-16 15:35 | disposition home or self-care (01) | DRG 853 ==
LOC: MS4 05-02 08:21 → MS2 05-05 22:35 → E/R 16:19 → MS2 05-03 19:55 → MS3 21:47
PROC: 0F9G0ZX Drainage of Pancreas, Open Approach, Diagnostic (ICD-10-PCS; principal; 2017-05-07 07:30)
PROC: 0FBG0ZZ Excision of Pancreas, Open Approach (ICD-10-PCS; 2017-05-07 07:30)
PROC: 0FT40ZZ Resection of Gallbladder, Open Approach (ICD-10-PCS; 2017-05-07 07:30)
PROC: 0W9H30Z Drainage of Retroperitoneum with Drainage Device, Percutaneous Approach (ICD-10-PCS; 2017-05-07 07:36)
PROC: 0WPH30Z Removal of Drainage Device from Retroperitoneum, Percutaneous Approach (ICD-10-PCS; 2017-05-07 07:36)
PROC: 30233N1 Transfusion of Nonautologous Red Blood Cells into Peripheral Vein, Percutaneous Approach (ICD-10-PCS; 2017-05-07 07:36)
DX: A41.9 Sepsis, unspecified organism (principal); K85.11 Biliary acute pancreatitis with uninfected necrosis; J90 Pleural effusion, not elsewhere classified; K86.3 Pseudocyst of pancreas; E46 Unspecified protein-calorie malnutrition; Z68.1 Body mass index [BMI] 19.9 or less, adult; K80.20 Calculus of gallbladder without cholecystitis without obstruction; D64.9 Anemia, unspecified; K59.03 Drug induced constipation; T40.2X5A Adverse effect of other opioids, initial encounter; E87.6 Hypokalemia; R11.2 Nausea with vomiting, unspecified
CPT/HCPCS: 36415; 36430; 71045; 74019; 74176; 74177; 74240; 75989; 80048; 80053; 80076; 80202; 81001; 82150; 82310; 82962; 83540; 83605; 83690; 83735; 83880; 84100; 84484; 85014; 85018; 85025; 85610; 85651; 85730; 86850; 86900; 86901; 86920; 87040; 87070; 87075; 87086; 87103; 88300; 88304; 88305; 88309; 93005; 96374; 96375; 96376; 99291-25

== ENCOUNTER 2017-06-05 11:09 | Outpatient (CLI) | payer OTHER | END 2017-06-05 15:53 | disposition home or self-care (01) | LOC: HPC 11:09 | DX: K85.90 Acute pancreatitis without necrosis or infection, unspecified (principal); K80.20 Calculus of gallbladder without cholecystitis without obstruction | CPT/HCPCS: Z7500 ==

== ENCOUNTER 2018-08-28 08:23 | Emergency (ER) | payer MEDICAID, OTHER ==
[2018-08-28 09:56] LABS: WHITE BLOOD COUNT 9.7 10^3/ul (4.8-10.8)
[2018-08-28 09:56] LABS: ADD MAN DIFF? NO; BASOPHILS % 0.4 % (0.0-2.0); EOSINOPHILS # 0.1 10^3/ul (0.0-0.5); EOSINOPHILS % 1.3 % (0.0-7.0); HEMOGLOBIN 16.6 g/dl (14.0-18.0); LYMPHOCYTES # 2.2 10^3/ul (0.8-2.9); MEAN CORPUSCULAR HGB CONC 33.2 g/dl (32.0-37.0); MEAN CORPUSCULAR VOLUME 90.4 fl (82.0-101.0); MEAN PLATELET VOLUME 11.8 fl (7.4-10.4); MONOCYTE # 0.7 10^3/ul (0.3-0.9); NEUTROPHIL # 6.6 10^3/ul (1.6-7.5); NEUTROPHILS % 68.1 % (39.0-77.0); PLATELET COUNT 180 10^3/UL (140-415); RED BLOOD COUNT 5.53 10^6/ul (4.70-6.10); RED CELL DISTRIBUTION WIDTH 12.2 % (11.5-14.5)
[2018-08-28 10:00] LABS: ADD UMIC NO; UR ASCORBIC ACID NEGATIVE (NEGATIVE); UR BILIRUBIN (Dip) NEGATIVE (NEGATIVE); UR BLOOD (Dip) NEGATIVE (NEGATIVE); UR CLARITY CLEAR (CLEAR); UR COLOR STRAW (YELLOW); UR GLUCOSE (Dip) NEGATIVE (NEGATIVE); UR KETONES (Dip) NEGATIVE (NEGATIVE); UR LEUKOCYTE ESTERASE (Dip) NEGATIVE Leu/ul (NEGATIVE); UR NITRITE (Dip) NEGATIVE (NEGATIVE); UR SPECIFIC GRAVITY (Dip) 1.013 (1.003-1.030); UR TOTAL PROTEIN (Dip) NEGATIVE (NEGATIVE); UR UROBILINOGEN (Dip) NEGATIVE (NEGATIVE)
[2018-08-28 10:17] LABS: ALANINE AMINOTRANSFERASE 22 IU/L (13-69); ALBUMIN 4.8 g/dl (3.3-4.9); ALBUMIN/GLOBULIN RATIO 1.09; ALKALINE PHOSPHATASE 136 IU/L (42-121); AMYLASE 112 U/L (11-123); ASPARTATE AMINO TRANSFERASE 27 IU/L (15-46); BILIRUBIN,INDIRECT 0.7 mg/dl (0-1.1); BILIRUBIN,TOTAL 0.7 mg/dl (0.2-1.3); BLOOD UREA NITROGEN 14 mg/dl (7-20); CALCIUM 9.7 mg/dl (8.4-10.2); CARBON DIOXIDE 29 mmol/L (21-31); CHLORIDE 105 mmol/L (97-110); Estimated GFR > 60 mL/min (>60); GLUCOSE 106 mg/dl (70-220); LIPASE 80 U/L (23-300); TOTAL PROTEIN 9.2 g/dl (6.1-8.1)
[2018-08-28 10:18] LABS: ANION GAP 9 (5-13); POTASSIUM 4.6 mmol/L (3.5-5.1); SODIUM 143 mmol/L (135-144)
[2018-08-28] MEDS: morphine 4 MG/ML VIAL IV (10:47)
[2018-08-28] MEDS: ONDANSETRON 4 MG INJ IV (10:47)
[2018-08-28] MEDS: SOD CHLORIDE 0.9% 1,000 ML IV ×2 (11:27→14:14)
[2018-08-28] MEDS: IOHEXOL 300MG/ML 150 ML BTL (12:32)
[2018-08-28] MEDS: SOD CHLORIDE 0.9% 100 ML (12:33)
[2018-08-28] MEDS: PIPER-TAZO 3.375 GM IV (PMX) 100 ML IVPB (14:14)
[2018-08-28] MEDS: HYDROmorphONE 0.5 MG/0.5 ML SYG IV (19:38)
[2018-08-29] MEDS: HYDROmorphONE 2 MG/ML SYG IV (00:15)
[2018-08-29] MEDS: morphine 4 MG/ML VIAL IV (06:00)
[2018-08-29] MEDS: ONDANSETRON 4 MG INJ IV ×2 (06:00→11:21)
[2018-08-29] MEDS: HYDROmorphONE 1 MG/ML SYG IV (12:20)
== END 2018-08-29 15:52 | disposition home or self-care (01) ==
LOC: E/R 08-29 15:52 → FTE 08:23
DX: K86.3 Pseudocyst of pancreas (principal)
CPT/HCPCS: 36415; 74177; 80053; 81003; 82150; 83690; 85025; 87040-91; 96361; 96374; 96375; 96376; 99285-25